=== PATIENT | female | born 1965 | race Caucasian/White ===

== ENCOUNTER 2016-10-31 17:13 | Inpatient (IN) | payer MEDICAID, MEDICARE ==
[~2016-10-31] VITALS: Ht 152.4 cm; Wt 61.7 kg
[~2016-10-31 17:13] MED LIST: ESOM20CA PO; FLUT1DIS27 IH; [UNRECOGNIZED DRUG - REMARK]
--- NOTE | 2016-10-31 17:30 | NUR ---
DR CRUZ AT THE BEDSIDE FOR EVAL AND EXAM.
[2016-10-31 18:01] LABS: BASOPHILS # (AUTO) 0.2 K/uL (0.0-8.0); EOSINOPHILS # (AUTO) 0.1 K/uL (0.0-0.7); EOSINOPHILS % (AUTO) 0.4 % (0.0-7.0); HEMATOCRIT 42.4 % (31.2-41.9); HEMOGLOBIN 14.5 g/dL (10.9-14.3); LYMPHOCYTES # (AUTO) 1.5 K/uL (20.0-40.0); LYMPHOCYTES % (AUTO) 6.4 % (20.5-51.5); MEAN CORPUSCULAR HEMOGLOBIN 29.6 uug (24.7-32.8); MEAN CORPUSCULAR HGB CONC 34 g/dL (32.3-35.6); MEAN CORPUSCULAR VOLUME 86.6 fL (75.5-95.3); MONOCYTES # (AUTO) 0.6 K/uL (2.0-10.0); MONOCYTES % (AUTO) 2.5 % (0.0-11.0); NEUTROPHILS # (AUTO) 21.8 K/uL (1.8-8.9); NEUTROPHILS % (AUTO) 89.7 % (38.5-71.5); PLATELET COUNT (AUTO) 441 K/uL (179-408); RED CELL DISTRIBUTION WIDTH 13.3 % (12.3-17.7); WHITE BLOOD COUNT (AUTO) 24.2 K/uL (3.8-11.8)
[2016-10-31 18:15] LABS: CALCIUM 9.2 mg/dL (8.5-10.1); CARBON DIOXIDE 24 mmol/L (21-32); CHLORIDE 103 mmol/L (98-107); GFR > 130 mL/min (>60); GLUCOSE 123 mg/dL (74-106); POTASSIUM 3.5 mmol/L (3.5-5.1); SODIUM SERUM 139 mmol/L (136-145); UREA NITROGEN, BLOOD 7 mg/dL (7-18)
[2016-10-31 18:17] LABS: CREATININE 0.3 mg/dL (0.6-1.3)
--- NOTE | 2016-10-31 18:20 | NUR ---
BELONGING LIST COMPLETED.
[2016-10-31 18:23] LABS: LACTIC ACID 0.9 mmol/L (0.4-2.0); TROPONIN I < 0.017 ng/mL (0.00-0.056)
[2016-10-31 18:26] LABS: LYMPHOCYTES % (MANUAL) 6 % (20-40); MONOCYTES % (MANUAL) 5 % (2-10); NEUTROPHILS % (MANUAL) 89 % (42-75)
[2016-10-31 18:27] LABS: PLATELET ESTIMATE ADEQUATE
[2016-10-31 18:28] LABS: ALANINE AMINOTRANSFERASE 43 U/L (14-59); ALBUMIN 3.1 g/dL (3.4-5.0); ALKALINE PHOSPHATASE 72 U/L (50-136); ASPARTATE AMINOTRANSFERASE 36 U/L (15-37); BILIRUBIN,DIRECT 0.1 mg/dL (0.0-0.2); BILIRUBIN,TOTAL 0.3 mg/dL (0.2-1.0); NT-PRO BNP 121 pg/mL (0-125); TOTAL PROTEIN, SERUM 8.5 g/dL (6.4-8.2)
[2016-10-31] MEDS ORDERED: CEFTRIAXONE 2 G in IV DEXTROSE 5% 100 ML IV ONE (18:30)
[2016-10-31] MEDS ORDERED: AZITHROMYCIN IV 500 MG in IV DEXTROSE 5% 250 ML IV ONE (18:30)
[2016-10-31] MEDS ORDERED: CEFTRIAXONE 1 G VIAL ONE (18:36)
[2016-10-31] MEDS ORDERED: AZITHROMYCIN 500 MG VIAL IV ONE (18:37)
--- NOTE | 2016-10-31 19:21 | NUR ---
Note adamaris in EDM - 10/31/16 at 1922 by JORGE Care endorsed by [facility] nurse, pt resting in wheelchair, pt is alert, oriented x 4, no resp distress noted or reported upon assessment...MD at bedside...
--- NOTE | 2016-10-31 19:22 | NUR ---
Care endorsed by dayshift nurse, pt resting in wheelchair, pt is alert, oriented x 4, no resp distress noted or reported upon assessment...
[2016-10-31] MEDS ORDERED: MAGNESIUM HYDROXIDE 30 ML LIQUID UDC PO PRN (20:15)
[2016-10-31] MEDS ORDERED: ALBUTEROL SULFATE 1.25 MG/3 ML NEBU NEB PRN (20:15)
[2016-10-31] MEDS ORDERED: LEVOFLOXACIN 500 MG/D5W 500 MG in PREMIXED 1 EACH IV SCH (20:15)
[2016-10-31] MEDS ORDERED: IPRATROPIUM BROMIDE 0.5 MG/2.5 ML NEBU NEB PRN (20:15)
[2016-10-31] MEDS ORDERED: TRAMADOL HCL 50 MG TABLET PO PRN (20:15)
[2016-10-31] MEDS ORDERED: ACETAMINOPHEN 325 MG TABLET PO PRN (20:15)
[2016-10-31] MEDS ORDERED: ONDANSETRON 4 MG/2 ML VIAL IV PRN (20:15)
--- NOTE | 2016-10-31 20:15 | NUR ---
nsg: pt received fr er, a/o x 4 with dx of pneumonia. denies sob or any discomfort. will have ct angiogram of chest. pt is wheelchair bound. at the bedside. cont to monitor.
[2016-10-31] MEDS ORDERED: FLUTICASONE/SALMETEROL 100/50 1 INH DISK.W.DEV IH SCH (21:00)
[2016-10-31] MEDS ORDERED: DOCUSATE SODIUM 250 MG CAPSULE PO SCH (21:00)
--- NOTE | 2016-10-31 21:25 | NUR ---
Pt. admitted to telemetry , under care of Dr. Zheng, Belongs List completed, pt alert, oriented x 4, pt resting in wheel chair, no resp distress noted or reported upon transfer assessment... pt transferred via personal wheel chair...
[2016-10-31] MEDS ORDERED: IV NORMAL SALINE 250 ML IV ONE (21:45)
[2016-10-31] MEDS ORDERED: NORMAL SALINE FLUSH 10 ML DISP.SYRIN ONE (21:45)
[2016-10-31] MEDS ORDERED: IOHEXOL 350 100 ML INFUS..BTL ONE (21:45)
[2016-10-31] MEDS ORDERED: LEVOFLOXACIN 500 MG/D5W 100 ML ONE (22:28)
[2016-10-31 22:33] VITALS: BP 158/88
[2016-10-31] MEDS ORDERED: FLUT1DIS28 INH (22:53)
[2016-10-31] MEDS ORDERED: AZITHROMYCIN IV 500 MG in IV DEXTROSE 5% 250 ML IV SCH (23:30)
[2016-10-31] MEDS ORDERED: CEFTRIAXONE 1 G in IV DEXTROSE 5% 50 ML IV SCH (23:30)
--- NOTE | 2016-10-31 23:30 | NUR ---
nsg: notified Dr. Petersen with cta result. per Md, called Dr. Menendez for consult.
[2016-11-01 00:41] VITALS: BP 150/94
--- NOTE | 2016-11-01 00:47 | NUR ---
NSG: ROCEPHIN AND ZITHROMAX WERE ADMINISTERED IN ER.
[2016-11-01 04:00] VITALS: BP 130/81
--- NOTE | 2016-11-01 05:00 | NUR ---
nsg: pt cough out thick greenish mucous, no trace of blood.
--- NOTE | 2016-11-01 05:40 | NUR ---
nsg: all needs attended. very helpful with adl's. pt denies discomfort. tele, SR. afebrile. cont to monitor.
[2016-11-01 07:00] LABS: BASOPHILS # (AUTO) 0.1 K/uL (0.0-8.0); BASOPHILS % (AUTO) 0.3 % (0.0-2.0); EOSINOPHILS # (AUTO) 0.2 K/uL (0.0-0.7); HEMATOCRIT 36.7 % (31.2-41.9); HEMOGLOBIN 12.9 g/dL (10.9-14.3); LYMPHOCYTES # (AUTO) 1.6 K/uL (20.0-40.0); LYMPHOCYTES % (AUTO) 9.4 % (20.5-51.5); MEAN CORPUSCULAR HEMOGLOBIN 30.4 uug (24.7-32.8); MEAN CORPUSCULAR HGB CONC 35 g/dL (32.3-35.6); MEAN CORPUSCULAR VOLUME 86.6 fL (75.5-95.3); MONOCYTES # (AUTO) 1.2 K/uL (2.0-10.0); NEUTROPHILS % (AUTO) 82.3 % (38.5-71.5); PLATELET COUNT (AUTO) 387 K/uL (179-408); RED BLOOD CELL COUNT(AUTO) 4.24 MIL/uL (3.63-4.92); RED CELL DISTRIBUTION WIDTH 13.1 % (12.3-17.7); WHITE BLOOD COUNT (AUTO) 17.1 K/uL (3.8-11.8)
[2016-11-01] MEDS ORDERED: PANTOPRAZOLE SODIUM 40 MG TABLET.DR PO SCH (07:00)
[2016-11-01 07:27] LABS: THYROID STIMULATING HORMONE 2.381 mIU/mL (0.358-3.740)
[2016-11-01 07:50] LABS: ALANINE AMINOTRANSFERASE 42 U/L (14-59); ALBUMIN 2.6 g/dL (3.4-5.0); ALKALINE PHOSPHATASE 66 U/L (50-136); ASPARTATE AMINOTRANSFERASE 33 U/L (15-37); BILIRUBIN,TOTAL 0.3 mg/dL (0.2-1.0); CALCIUM 8.9 mg/dL (8.5-10.1); CARBON DIOXIDE 25 mmol/L (21-32); CHLORIDE 107 mmol/L (98-107); CHOLESTEROL 109 mg/dL (<200); GFR > 130 mL/min (>60); GLUCOSE 113 mg/dL (74-106); HDL CHOLESTEROL 66 mg/dL (40-60); MAGNESIUM 2.2 mg/dL (1.8-2.4); PHOSPHOROUS 3.1 mg/dL (2.5-4.9); POTASSIUM 3.6 mmol/L (3.5-5.1); SODIUM SERUM 142 mmol/L (136-145); TOTAL PROTEIN, SERUM 7.5 g/dL (6.4-8.2); TRIGLYCERIDES 43 MG/DL (30-150); UREA NITROGEN, BLOOD 4 mg/dL (7-18)
[2016-11-01 07:54] LABS: CREATININE 0.2 mg/dL (0.6-1.3)
--- NOTE | 2016-11-01 08:00 | NUR ---
Pt is in no acute distress. Call light si wthin reach. Pt's takes care of pt. HHN tx given by rt.
[2016-11-01] MEDS: ENOXAPARIN SODIUM 40 MG/0.4 ML DISP.SYRIN SQ SCH ×2 (08:30→09:00)
[2016-11-01] MEDS ORDERED: FLUTICASONE/SALMETEROL 250/50 INHALER INH SCH (09:00)
[2016-11-01 12:23] VITALS: BP 131/85
[2016-11-01] MEDS ORDERED: LEVALBUTEROL HCL NEB 0.63 MG/3 ML NEBU NEB PRN (15:30)
[2016-11-01] MEDS ORDERED: IV D5W-0.45% NS + KCL 30 MEQ/1000 ML BAG IV SCH (15:30)
[2016-11-01] MEDS ORDERED: ACETYLCYSTEINE 10% 4ML VIAL NEB SCH (15:30)
--- NOTE | 2016-11-01 16:00 | NUR ---
Pt iv infiltrated. Notiified Dr velazco ordered midline. Placed call for midline people and ETA of 1900. Pt is in no acute distress.
[2016-11-01] MEDS: methylPREDNISolone SOD SUCC 125 MG/2 ML VIAL IV SCH ×2 (16:17→21:40)
[2016-11-01] MEDS: CEFTRIAXONE 1 G in IV DEXTROSE 5% 50 ML IV SCH (16:18)
[2016-11-01] MEDS: POTASSIUM CHLORIDE 30 MEQ in IV D5 1/2 NS 1000 ML 1,000 ML IV SCH (16:19)
[2016-11-01 16:44] VITALS: BP 138/86
--- NOTE | 2016-11-01 18:30 | NUR ---
midline on left arm intact and flushing well restarted IV abx . Will endorse to next shift to give next abx. Pt is in no acute distress. Call light is within reach.
[2016-11-01 19:00] VITALS: BP 129/80
[2016-11-01] MEDS: IPRATROPIUM BROMIDE 0.5 MG/2.5 ML NEBU NEB SCH (19:33)
[2016-11-01] MEDS: LEVALBUTEROL HCL NEB 0.63 MG/3 ML NEBU NEB SCH (19:33)
[2016-11-01] MEDS: BUDESONIDE 0.5 MG/2 ML NEBU NEB SCH (19:33)
[2016-11-01] MEDS: ACETYLCYSTEINE 10% 4ML VIAL NEB SCH (19:34)
[2016-11-01] MEDS ORDERED: IPRATROPIUM BROMIDE 0.5 MG/2.5 ML NEBU NEB PRN (20:15)
[2016-11-01] MEDS: AZITHROMYCIN IV 500 MG in IV DEXTROSE 5% 250 ML IV SCH (20:48)
[2016-11-01] MEDS: DOCUSATE SODIUM 100 MG CAPSULE PO SCH (20:49)
[2016-11-01] MEDS: LACTOBACILLUS RHAMNOSUS GG 1 EACH CAPSULE PO SCH (20:49)
[2016-11-02] MEDS: ACETYLCYSTEINE 10% 4ML VIAL NEB SCH ×5 (01:00→22:25)
[2016-11-02] MEDS: IPRATROPIUM BROMIDE 0.5 MG/2.5 ML NEBU NEB SCH ×5 (01:00→22:24)
[2016-11-02] MEDS: LEVALBUTEROL HCL NEB 0.63 MG/3 ML NEBU NEB SCH ×5 (01:01→22:25)
[2016-11-02 04:00] VITALS: BP 118/76
[2016-11-02] MEDS: POTASSIUM CHLORIDE 30 MEQ in IV D5 1/2 NS 1000 ML 1,000 ML IV SCH ×2 (05:13→17:31)
[2016-11-02] MEDS: methylPREDNISolone SOD SUCC 125 MG/2 ML VIAL IV SCH (05:13)
--- NOTE | 2016-11-02 05:40 | NUR ---
PATIENT SLEPT INTERMITTENTLY, NO ACUTE DISTRESS. ZITHROMAX IV GIVEN ORDERED, NO S/S OF ADVERSE REACTION NOTED. IVF INFUSING, NO S/S OF INFILTRATION. REPOSITIONED FOR COMFORT. SPOUSE AT BEDSIDE. SAFETY MEASURES IN PLACE, CALL LIGHT WITHIN REACH, BED ALARM ON. WILL CONTINUE TO MONITOR
[2016-11-02 07:09] LABS: CALCIUM 8.8 mg/dL (8.5-10.1); CARBON DIOXIDE 23 mmol/L (21-32); CHLORIDE 103 mmol/L (98-107); GFR > 130 mL/min (>60); POTASSIUM 4.3 mmol/L (3.5-5.1); SODIUM SERUM 136 mmol/L (136-145); UREA NITROGEN, BLOOD 4 mg/dL (7-18)
[2016-11-02 07:10] LABS: CREATININE 0.4 mg/dL (0.6-1.3)
[2016-11-02 07:13] LABS: GLUCOSE 325 mg/dL (74-106)
--- NOTE | 2016-11-02 07:15 | NUR ---
BREE FROM LAB CALLED REGARDING PATIENT'S BLOOD GLUCOSE LEVEL FOR THIS MORNING AT 325. ENDORSED TO THE AM SHIFT RN TO CALL
[2016-11-02 07:36] LABS: BASOPHILS % (AUTO) 0.1 % (0.0-2.0); EOSINOPHILS % (AUTO) 0.3 % (0.0-7.0); HEMATOCRIT 36.2 % (31.2-41.9); HEMOGLOBIN 12.4 g/dL (10.9-14.3); LYMPHOCYTES # (AUTO) 0.6 K/uL (20.0-40.0); LYMPHOCYTES % (AUTO) 8.4 % (20.5-51.5); MEAN CORPUSCULAR HEMOGLOBIN 29.8 uug (24.7-32.8); MEAN CORPUSCULAR HGB CONC 34 g/dL (32.3-35.6); MEAN CORPUSCULAR VOLUME 86.8 fL (75.5-95.3); MONOCYTES # (AUTO) 0.1 K/uL (2.0-10.0); MONOCYTES % (AUTO) 1.8 % (0.0-11.0); NEUTROPHILS # (AUTO) 6.1 K/uL (1.8-8.9); NEUTROPHILS % (AUTO) 89.4 % (38.5-71.5); PLATELET COUNT (AUTO) 413 K/uL (179-408); RED BLOOD CELL COUNT(AUTO) 4.17 MIL/uL (3.63-4.92); RED CELL DISTRIBUTION WIDTH 13.3 % (12.3-17.7)
[2016-11-02 07:38] LABS: WHITE BLOOD COUNT (AUTO) 6.8 K/uL (3.8-11.8)
[2016-11-02] MEDS: BUDESONIDE 0.5 MG/2 ML NEBU NEB SCH ×3 (07:46→22:26)
--- NOTE | 2016-11-02 08:20 | NUR ---
CPT PERFORMED TO LEFT SIDE PER MD ORDER. CPT DONE X 15MINS.
[2016-11-02] MEDS: ENOXAPARIN SODIUM 40 MG/0.4 ML DISP.SYRIN SQ SCH (08:48)
[2016-11-02] MEDS ORDERED: PATIENT MAY USE OWN MED- MD OK PO SCH ×2 (09:36→10:07)
--- NOTE | 2016-11-02 10:05 | NUR ---
PT REQUESTING TO TAKE MICROGESTIN IN THE EVENING, WILL CALL PHARMACY TO ADJUST
[2016-11-02] MEDS: LACTOBACILLUS RHAMNOSUS GG 1 EACH CAPSULE PO SCH ×2 (10:20→21:06)
[2016-11-02 10:49] LABS: ABG BASE EXCESS -5.2 mmol/L; ABG HCO3 17.5 mmol/L; ABG PCO2 26.8 mmHg (35.0-45.0); ABG PH 7.433 (7.350-7.450); ABG PO2 84.2 mmHg (75.0-100.0); ABG SITE RIGHT RADIAL; ABG TOTAL HEMOGLOBIN 13.5 G/dL (12.0-16.0); COHb 0.8 % (0.5-1.5); MetHb 0.5 % (0.0-1.5); O2Hb 95.7 % (94.0-97.0); VENT MODE Room Air
--- NOTE | 2016-11-02 11:50 | NUR ---
CPT DONE X 15MINS. FOCUS TO LEFT SIDE PER MD ORDER. PT SITTING IN WC DURING TX.
[2016-11-02 11:51] VITALS: BP 149/93
[2016-11-02 16:20] VITALS: BP 140/96
--- NOTE | 2016-11-02 16:20 | NUR ---
CPT DONE X 15MINS. FOCUS TO LEFT SIDE PER MD ORDER. PT SITTING IN WC DURING TX.
[2016-11-02] MEDS ORDERED: ACETAMINOPHEN 650 MG/20.3 ML LIQUID UDC PO PRN (16:30)
[2016-11-02] MEDS: CEFTRIAXONE 1 G in IV DEXTROSE 5% 50 ML IV SCH (16:48)
[2016-11-02] MEDS ORDERED: methylPREDNISolone SOD SUCC 125 MG/2 ML VIAL IV SCH (17:00)
[2016-11-02] MEDS: AZITHROMYCIN IV 500 MG in IV DEXTROSE 5% 250 ML IV SCH (18:59)
--- NOTE | 2016-11-02 20:19 | NUR ---
Pt awake, alert. No respiratory distress noted. Pt asked RT to come back in 1 hour due to nausea. RN Ada notified.
[2016-11-02 20:24] VITALS: BP 145/92
[2016-11-02] MEDS ORDERED: NEXIUM 40MG CAPSULE PO SCH (21:00)
[2016-11-02] MEDS: DOCUSATE SODIUM 100 MG CAPSULE PO SCH (21:00)
[2016-11-02] MEDS: methylPREDNISolone SOD SUCC 40 MG/ML VIAL IV SCH (21:05)
--- NOTE | 2016-11-02 22:30 | NUR ---
CPT done on left side per MD order. Pt tolerated well.
--- NOTE | 2016-11-02 23:45 | NUR ---
Patient refused IVF D5 1/2NS + KCL 30 mEq at 80ml/hr due to alarm sensitivity when patient moves, coughs or during repositioning. Patient stated "I want to be able to get some sleep". butt presser notified regarding situation. Patient's current Potassium level is 4.3. Will continue to monitor.
[2016-11-03] VITALS: BP 133/80
[2016-11-03] MEDS: ACETYLCYSTEINE 10% 4ML VIAL NEB SCH ×3 (01:30→07:18)
[2016-11-03] MEDS: LEVALBUTEROL HCL NEB 0.63 MG/3 ML NEBU NEB SCH ×2 (01:30→07:17)
[2016-11-03] MEDS: IPRATROPIUM BROMIDE 0.5 MG/2.5 ML NEBU NEB SCH ×2 (01:30→07:17)
--- NOTE | 2016-11-03 02:03 | NUR ---
HHN tx's not given. Previous tx's pt got late. Next tx's she wants after 3AM. RN Ada notified.
[2016-11-03 05:19] VITALS: BP 130/76
--- NOTE | 2016-11-03 05:37 | NUR ---
Patient slept intermittently, in no acute distress, anxious about possible bronchoscopy procedure per MD's plan. Patient continues to refuse IVF. Will endorse to AM shift RN. Spouse at bedside. Will continue to monitor.
--- NOTE | 2016-11-03 06:08 | NUR ---
Patient complained of throat discomfort, noted to have white patches on the roof of the mouth and tongue. Will endorse to day shift RN to notify MD during AM rounds. Addendum: 11/03/16 at 0613 by CELI JOHNSON RN Additional note: Notified inserter operator regarding patient's status.
[2016-11-03 06:56] LABS: BASOPHILS % (AUTO) 0.2 % (0.0-2.0); EOSINOPHILS # (AUTO) 0.1 K/uL (0.0-0.7); EOSINOPHILS % (AUTO) 0.8 % (0.0-7.0); HEMOGLOBIN 12.3 g/dL (10.9-14.3); LYMPHOCYTES # (AUTO) 0.5 K/uL (20.0-40.0); LYMPHOCYTES % (AUTO) 3.7 % (20.5-51.5); MEAN CORPUSCULAR HEMOGLOBIN 29.2 uug (24.7-32.8); MEAN CORPUSCULAR HGB CONC 33 g/dL (32.3-35.6); MEAN CORPUSCULAR VOLUME 87.6 fL (75.5-95.3); MONOCYTES # (AUTO) 0.4 K/uL (2.0-10.0); MONOCYTES % (AUTO) 3.2 % (0.0-11.0); NEUTROPHILS # (AUTO) 12.8 K/uL (1.8-8.9); NEUTROPHILS % (AUTO) 92.1 % (38.5-71.5); PLATELET COUNT (AUTO) 434 K/uL (179-408); RED BLOOD CELL COUNT(AUTO) 4.22 MIL/uL (3.63-4.92); RED CELL DISTRIBUTION WIDTH 13.4 % (12.3-17.7); WHITE BLOOD COUNT (AUTO) 13.8 K/uL (3.8-11.8)
[2016-11-03 07:12] LABS: CALCIUM 8.9 mg/dL (8.5-10.1); CARBON DIOXIDE 23 mmol/L (21-32); CHLORIDE 107 mmol/L (98-107); GFR > 130 mL/min (>60); GLUCOSE 207 mg/dL (74-106); POTASSIUM 3.7 mmol/L (3.5-5.1); SODIUM SERUM 140 mmol/L (136-145); UREA NITROGEN, BLOOD 6 mg/dL (7-18)
[2016-11-03 07:14] LABS: CREATININE 0.3 mg/dL (0.6-1.3)
[2016-11-03] MEDS: BUDESONIDE 0.5 MG/2 ML NEBU NEB SCH (07:17)
--- NOTE | 2016-11-03 08:00 | NUR ---
Awake, alert, oriented x 4, at bedside. CPT with RT. CXR done
[2016-11-03] MEDS: methylPREDNISolone SOD SUCC 40 MG/ML VIAL IV SCH (09:00)
[2016-11-03] MEDS: LACTOBACILLUS RHAMNOSUS GG 1 EACH CAPSULE PO SCH (09:00)
[2016-11-03 11:08] VITALS: BP 160/95
--- NOTE | 2016-11-03 12:12 | NUR ---
With discharge order to home. Midline removed. Prescription and DC instruction given to patient and spouse, verbalized understanding.
--- NOTE | 2016-11-03 12:29 | NUR ---
Went home per wheelchair in fair condition, not in distress, afebrile with spouse.
== END 2016-11-03 12:30 | disposition home or self-care (01) | DRG 871 ==
LOC: ER 17:20 → TELE 19:44 → MED 11-01 11:35
PROVIDERS: ADMIT Internal Medicine; ATTEND Internal Medicine
PROC: 05H633Z Insertion of Infusion Device into Left Subclavian Vein, Percutaneous Approach (ICD-10-PCS; principal; 2016-11-01)
DX: A41.9 Sepsis, unspecified organism (principal); J15.9 Unspecified bacterial pneumonia; T17.890A Other foreign object in other parts of respiratory tract causing asphyxiation, initial encounter; G71.0 Muscular dystrophy; D68.59 Other primary thrombophilia; J45.901 Unspecified asthma with (acute) exacerbation; J98.11 Atelectasis; K44.9 Diaphragmatic hernia without obstruction or gangrene; K21.9 Gastro-esophageal reflux disease without esophagitis; M41.9 Scoliosis, unspecified; K80.20 Calculus of gallbladder without cholecystitis without obstruction; E86.0 Dehydration; X58.XXXA Exposure to other specified factors, initial encounter; Y92.009 Unspecified place in unspecified non-institutional (private) residence as the place of occurrence of the external cause; T38.0X5A Adverse effect of glucocorticoids and synthetic analogues, initial encounter; Y93.9 Activity, unspecified; Y99.9 Unspecified external cause status; R73.9 Hyperglycemia, unspecified; K76.0 Fatty (change of) liver, not elsewhere classified; R59.0 Localized enlarged lymph nodes
CPT/HCPCS: 36415; 36569; 36600; 70030-TC; 71010; 71275; 82785; 83605; 83735; 84100; 84443; 85025; 87040; 87070; 94640; 94664; A4663; J0456; J0696; J1650; J1956; J2920; J2930; J3480; J3490; J3590; J7050; J7060; J7614; Q9967

== ENCOUNTER 2016-11-07 19:15 | Emergency (ER) | payer MEDICARE ==
[~2016-11-07] VITALS: Ht 152.4 cm; Wt 59.0 kg
[~2016-11-07 19:15] MED LIST changes: -FLUT1DIS27 IH; +FLUT1DIS28 INH
--- NOTE | 2016-11-07 19:30 | NUR ---
pt ambulates in automated wheelchair with at side, c/o unable to sleep/afraid that infection is coming back, pt is alert, oriented x 4, no resp distress noted or reported upon assessment... md at bedside...
[2016-11-07 20:14] LABS: BASOPHILS # (AUTO) 0.3 K/uL (0.0-8.0); EOSINOPHILS # (AUTO) 0.2 K/uL (0.0-0.7); HEMATOCRIT 46.7 % (31.2-41.9); HEMOGLOBIN 15.9 g/dL (10.9-14.3); LYMPHOCYTES # (AUTO) 2.9 K/uL (20.0-40.0); LYMPHOCYTES % (AUTO) 18.8 % (20.5-51.5); MEAN CORPUSCULAR HEMOGLOBIN 29.7 uug (24.7-32.8); MEAN CORPUSCULAR HGB CONC 34 g/dL (32.3-35.6); MEAN CORPUSCULAR VOLUME 87.6 fL (75.5-95.3); MONOCYTES # (AUTO) 0.9 K/uL (2.0-10.0); MONOCYTES % (AUTO) 5.8 % (0.0-11.0); NEUTROPHILS # (AUTO) 11.1 K/uL (1.8-8.9); NEUTROPHILS % (AUTO) 72.4 % (38.5-71.5); PLATELET COUNT (AUTO) 555 K/uL (179-408); RED BLOOD CELL COUNT(AUTO) 5.34 MIL/uL (3.63-4.92); RED CELL DISTRIBUTION WIDTH 13.7 % (12.3-17.7); WHITE BLOOD COUNT (AUTO) 15.4 K/uL (3.8-11.8)
[2016-11-07 20:28] LABS: CALCIUM 9.4 mg/dL (8.5-10.1); CARBON DIOXIDE 26 mmol/L (21-32); GFR > 130 mL/min (>60); GLUCOSE 157 mg/dL (74-106); UREA NITROGEN, BLOOD 14 mg/dL (7-18)
--- NOTE | 2016-11-07 20:30 | NUR ---
pt iv placed, hooked up to fluids per ermd orders....
[2016-11-07 20:31] LABS: CHLORIDE 103 mmol/L (98-107); POTASSIUM 3.3 mmol/L (3.5-5.1); SODIUM SERUM 141 mmol/L (136-145)
[2016-11-07 20:32] LABS: CREATININE 0.5 mg/dL (0.6-1.3)
[2016-11-07] MEDS ORDERED: IV NORMAL SALINE 1000 ML BAG IV ONE ×2 (21:15→23:15)
--- NOTE | 2016-11-07 21:45 | NUR ---
pt continues resting in wheelchair, will continue to monitor pt for safety, comfort, and pain... at side...
--- NOTE | 2016-11-08 01:08 | NUR ---
Patient discharged to home in stable conditon. Written and verbal after care instructions given. Patient verbalizes understanding of instructions. pt exited ER unassisted with belongings and at side...
[2016-11-08 01:12] VITALS: BP 142/97
== END 2016-11-08 01:12 | disposition home or self-care (01) ==
LOC: ER 19:19
DX: E86.0 Dehydration (principal); J98.01 Acute bronchospasm; F41.9 Anxiety disorder, unspecified; K21.9 Gastro-esophageal reflux disease without esophagitis
CPT/HCPCS: 36415; 71010 ×2; 80048; 83735; 85025; 94640 ×2; 96360; 96361; 99285; A4663; J7030 ×2

== ENCOUNTER 2017-03-22 12:11 | Inpatient (IN) | payer MEDICARE ==
[~2017-03-22] VITALS: Ht 152.4 cm; Wt 59.0 kg
--- NOTE | 2017-03-22 12:27 | NUR ---
patient in room 2A at bedside patient awaiting to see in her own motorized chair.
[2017-03-22 13:46] LABS: BASOPHILS # (AUTO) 0.8 K/uL (0.0-8.0); BASOPHILS % (AUTO) 3.7 % (0.0-2.0); EOSINOPHILS % (AUTO) 0.1 % (0.0-7.0); HEMATOCRIT 43.2 % (37-47); LYMPHOCYTES # (AUTO) 0.6 K/UL (0.8-4.8); MEAN CORPUSCULAR HEMOGLOBIN 28.3 UUG (27.0-31.0); MEAN CORPUSCULAR HGB CONC 32 g/dL (32.0-37.0); MEAN CORPUSCULAR VOLUME 87.4 FL (81.0-99.0); MONOCYTES # (AUTO) 0.7 K/UL (0.1-1.30); MONOCYTES % (AUTO) 3.5 % (0.0-11.0); NEUTROPHILS # (AUTO) 18.6 K/UL (1.8-8.9); NEUTROPHILS % (AUTO) 89.7 % (38.5-71.5); PLATELET COUNT (AUTO) 384 K/UL (150-450); RED BLOOD CELL COUNT(AUTO) 4.95 MIL/UL (4.2-5.4); WHITE BLOOD COUNT (AUTO) 20.7 K/UL (4.0-11.2)
[2017-03-22 13:49] LABS: CARBON DIOXIDE 24 mmol/L (21-32); CHLORIDE 103 mmol/L (98-107); CREATININE 0.4 mg/dL (0.6-1.3); GLUCOSE 216 mg/dL (74-106); POTASSIUM 3.2 mmol/L (3.5-5.1); UREA NITROGEN, BLOOD 7 mg/dL (7-18)
[2017-03-22 14:02] LABS: ALANINE AMINOTRANSFERASE 22 U/L (14-59); ALKALINE PHOSPHATASE 77 U/L (50-136); ASPARTATE AMINOTRANSFERASE 18 U/L (15-37); BILIRUBIN,DIRECT 0.1 mg/dL (0.0-0.2); BILIRUBIN,TOTAL 0.4 mg/dL (0.2-1.0); TOTAL PROTEIN, SERUM 7.7 g/dL (6.4-8.2)
--- NOTE | 2017-03-22 14:03 | NUR ---
DR CRUZ NOTIFIED OF ELEVATED LACTIC ACID
[2017-03-22 14:17] LABS: BAND % (MANUAL) 12 % (0-10); LYMPHOCYTES % (MANUAL) 2 % (20-40); MONOCYTES % (MANUAL) 6 % (2-10); NEUTROPHILS % (MANUAL) 80 % (42-75)
--- NOTE | 2017-03-22 15:20 | NUR ---
ASSITED PATIENT WITH VOIDING URINE IN A FONSECA. PT IS AWAKE AND ALERT WITH NO NEW COMPLAINTS. SPUTUM SPECIMEN SENT TO LAB
--- NOTE | 2017-03-22 16:00 | NUR ---
REPORT GIVEN TO ABILIO RN. PT AND AWARE OF PENDING ADMISSION.
[2017-03-22 16:59] VITALS: BP 152/83
--- NOTE | 2017-03-22 20:00 | NUR ---
Received pt from am shift,pt's A/A/O x4;generalized weakness,cough sometimes with moderate amount of white sputum.called Rx in order to follow up with KCL due to pt's unable to take tablet;will arrange it pascual(see record in SEP noted).pt's on IVF as order;educated to pt and her who's stayed at the bedside;they verbalized understanding and cooperative noted.all needs were met.Called MD in order to get orders as pt requested(see record); called back and gave order for HHN RX,medication(as record);educated to pt and ;they verbalized understanding noted.
[2017-03-22 20:37] VITALS: BP 134/80
--- NOTE | 2017-03-22 21:25 | NUR ---
Educated to pt about Lovenox for DVT prophylaxis:Pt refused to get Lovenox and stated that"I know what I need.I don't need any kind of blood thinner,everyone told me about it but I don't need it";pt's who stayed at the bedside agreed with pt about it and stated that"Believe me,my knows what she need".Kept comfort.call-light within reach.
--- NOTE | 2017-03-22 23:00 | NUR ---
Called RT in order to give HHN Rx(Xopenex) to pt as request;pt tolerated well.cough's getting better/no SOB noted.maintained IVF as order.kept comfort.call-light within reach.PM care to pt at this time.
--- NOTE | 2017-03-22 23:50 | NUR ---
PER PT AND HER STATED THAT THEY WANTED PT TO SLEEP DURING OF THE NIGHT,TRIED NOT TO WAKE HER UP VIRGILIO.MAINTAINED IVF ORDER.KEPT COMFORT.SAFETY RENDER.CALL-LIGHT WITHIN REACH.
[2017-03-23 05:00] VITALS: BP 102/54
--- NOTE | 2017-03-23 06:00 | NUR ---
PT STATED THAT SHE'S ABLE TO SLEEP OK.FOUND STILL PENDING LAB TEST FOR INFLUENZA A&B;EDUCATED TO PT AND ABOUT THIS TEST;THEY VERBALIZED UNDERSTANDING AND STATED THAT IF THIS TEST'S NOT FROM 'S ORDER;SHE WANTED TO WAIT AND DISCUSSED WITH PRIOR THE TEST;LUCAS/RUBBER MOLD MAKER'S NOTIFIED AND AWARE.MAINTAINED IVF ORDER;NO INFILTRATION AT THE IV SITE NOTED.ALL NEEDS WERE MET.NO SOB WAS SEEN UPON THIS TIME.PT STATED THAT "I'M NOT TAKING PROTONIX THIS MORNING,I USUALLY TAKE NEXIUM AT HOME".KEPT CALL-LIGHT WITHIN REACH.
[2017-03-23 06:58] LABS: BASOPHILS % (AUTO) 0.1 % (0.0-2.0); EOSINOPHILS % (AUTO) 0.3 % (0.0-7.0); HEMATOCRIT 35.8 % (37-47); LYMPHOCYTES # (AUTO) 0.4 K/UL (0.8-4.8); LYMPHOCYTES % (AUTO) 3.3 % (20.5-51.5); MEAN CORPUSCULAR HEMOGLOBIN 29.6 UUG (27.0-31.0); MEAN CORPUSCULAR HGB CONC 34 g/dL (32.0-37.0); MEAN CORPUSCULAR VOLUME 88.4 FL (81.0-99.0); MONOCYTES # (AUTO) 0.1 K/UL (0.1-1.30); MONOCYTES % (AUTO) 0.8 % (0.0-11.0); NEUTROPHILS # (AUTO) 12.8 K/UL (1.8-8.9); NEUTROPHILS % (AUTO) 95.5 % (38.5-71.5); PLATELET COUNT (AUTO) 319 K/UL (150-450); RED BLOOD CELL COUNT(AUTO) 4.04 MIL/UL (4.2-5.4); WHITE BLOOD COUNT (AUTO) 13.3 K/UL (4.0-11.2)
[2017-03-23 07:13] LABS: ALANINE AMINOTRANSFERASE 20 U/L (14-59); ALKALINE PHOSPHATASE 66 U/L (50-136); ASPARTATE AMINOTRANSFERASE 17 U/L (15-37); BILIRUBIN,TOTAL 0.2 mg/dL (0.2-1.0); CARBON DIOXIDE 21 mmol/L (21-32); CHLORIDE 112 mmol/L (98-107); CHOLESTEROL 100 mg/dL (<200); CREATININE 0.2 mg/dL (0.6-1.3); GLUCOSE 170 mg/dL (74-106); HDL CHOLESTEROL 64 mg/dL (40-60); MAGNESIUM 1.9 mg/dL (1.8-2.4); PHOSPHOROUS 1.8 mg/dL (2.5-4.9); POTASSIUM 4.4 mmol/L (3.5-5.1); TOTAL PROTEIN, SERUM 6.4 g/dL (6.4-8.2); TRIGLYCERIDES 26 MG/DL (30-150); UREA NITROGEN, BLOOD 3 mg/dL (7-18)
[2017-03-23 07:16] LABS: THYROID STIMULATING HORMONE 0.434 mIU/mL (0.358-3.740)
--- NOTE | 2017-03-23 08:00 | NUR ---
Awake, alert, oriented x 4, with at bedside. IVF infusing. Not in distress.
--- NOTE | 2017-03-23 09:15 | NUR ---
Patient care done by then transferred to own wheelchair. Breakfast served after per request
[2017-03-23 10:20] LABS: *BILIRUBIN,URIN NEGATIVE (NEGATIVE); *BLOOD, URINE Trace-intact (NEGATIVE); *CLARITY,URINE CLOUDY (CLEAR); *COLOR,URINE YELLOW (YELLOW); *KETONES,URINE 2+ (NEGATIVE); *PROTEIN,URINE TRACE (NEGATIVE); *UROBILINOGEN,URINE 0.2 E.U./dl (NORMAL); LEUKOCYTE ESTERASE ,URINE TRACE (NEGATIVE); NITRITE, URINE NEGATIVE (NEGATIVE); PH,URINE 6.5 (5.0-8.0); UGLUCOSE NEGATIVE (NEGATIVE)
[2017-03-23 10:32] LABS: BACTERIA,URINE FEW /HPF (NONE SEEN); SQUAMOUS EPITHELIAL CELL,UR MODERATE /HPF (NONE SEEN)
[2017-03-23] MEDS ORDERED: NORE-83 PO (10:56)
[2017-03-23 11:11] VITALS: BP 105/62
--- NOTE | 2017-03-23 12:00 | NUR ---
Complained of headache, Tylenol po given.
--- NOTE | 2017-03-23 16:00 | NUR ---
Comfortable sitting on the wheelchair.
--- NOTE | 2017-03-23 18:39 | NUR ---
Assisted back to bed by . Repositioned comfortably.
--- NOTE | 2017-03-23 19:00 | NUR ---
PT C/O NAUSEA. WILL ADMIN ZOFRAN ORDERED.
--- NOTE | 2017-03-23 19:40 | NUR ---
PT RECEIVED IN BED, AWAKE. VERNA AT BEDSIDE. A/OX4. ABLE TO MAKE NEEDS KNOWN. V/S STABLE. IN NO ACUTE DISTRESS. NO C/O PAIN AT THIS TIME. IVF AND ABX INFUSING. SAFETY MEASURES IMPLEMENTED. CALL LIGHT WITHIN REACH.
[2017-03-23 20:00] VITALS: BP 148/85
--- NOTE | 2017-03-23 20:15 | NUR ---
PT VERBALIZE RELIEF OF NAUSEA. WILL CONT TO MONITOR.
[2017-03-23 21:58] VITALS: BP 116/57
[2017-03-24 04:00] VITALS: BP 130/76
--- NOTE | 2017-03-24 06:02 | NUR ---
END OF SHIFT NOTES. PT SLEPT WELL THROUGHOUT SHIFT. AT BEDSIDE. PT IN STABLE CONDITION. NO C/O PAIN. IVF INFUSING. ALL NEEDS ATTENDED. SAFETY MEASURES IMPLEMENTED. CALL LIGHT WITHIN REACH.
[2017-03-24 07:41] LABS: BASOPHILS % (AUTO) 0.2 % (0.0-2.0); EOSINOPHILS # (AUTO) 0.1 K/uL (0.0-0.7); EOSINOPHILS % (AUTO) 0.8 % (0.0-7.0); HEMATOCRIT 34.8 % (37-47); HEMOGLOBIN 11.4 G/DL (12.0-16.0); LYMPHOCYTES # (AUTO) 0.7 K/UL (0.8-4.8); LYMPHOCYTES % (AUTO) 7.6 % (20.5-51.5); MEAN CORPUSCULAR HEMOGLOBIN 29.1 UUG (27.0-31.0); MEAN CORPUSCULAR HGB CONC 33 g/dL (32.0-37.0); MEAN CORPUSCULAR VOLUME 88.9 FL (81.0-99.0); MONOCYTES # (AUTO) 0.5 K/UL (0.1-1.30); MONOCYTES % (AUTO) 4.9 % (0.0-11.0); NEUTROPHILS # (AUTO) 8.5 K/UL (1.8-8.9); NEUTROPHILS % (AUTO) 86.5 % (38.5-71.5); PLATELET COUNT (AUTO) 335 K/UL (150-450); RED BLOOD CELL COUNT(AUTO) 3.92 MIL/UL (4.2-5.4); WHITE BLOOD COUNT (AUTO) 9.8 K/UL (4.0-11.2)
[2017-03-24 07:48] LABS: ALANINE AMINOTRANSFERASE 22 U/L (14-59); ALKALINE PHOSPHATASE 55 U/L (50-136); ASPARTATE AMINOTRANSFERASE 16 U/L (15-37); BILIRUBIN,TOTAL 0.1 mg/dL (0.2-1.0); CARBON DIOXIDE 24 mmol/L (21-32); CHLORIDE 112 mmol/L (98-107); CREATININE 0.2 mg/dL (0.6-1.3); GLUCOSE 154 mg/dL (74-106); MAGNESIUM 1.9 mg/dL (1.8-2.4); PHOSPHOROUS 1.8 mg/dL (2.5-4.9); POTASSIUM 3.8 mmol/L (3.5-5.1); TOTAL PROTEIN, SERUM 6.4 g/dL (6.4-8.2); UREA NITROGEN, BLOOD 4 mg/dL (7-18)
[2017-03-24 10:42] LABS: LYMPHOCYTES % (MANUAL) 9 % (20-40); MONOCYTES % (MANUAL) 7 % (2-10); NEUTROPHILS % (MANUAL) 84 % (42-75)
[2017-03-24 11:28] LABS: IRON, SERUM 27 ug/dL (50-175)
--- NOTE | 2017-03-24 12:11 | NUR ---
CLEANING PATIENT, ADVISED TO CALL WHEN FINISHED TO ADMINISTER MEDICATIONS, PT AGREED
[2017-03-24] MEDS ORDERED: PRED10TA PO (14:14)
[2017-03-24] MEDS ORDERED: LEVA0.6320 NEB (14:14)
[2017-03-24] MEDS ORDERED: PRED-170 PO (14:14)
[2017-03-24] MEDS ORDERED: PRED20TA PO (14:14)
[2017-03-24] MEDS ORDERED: FERR325T28 PO (14:14)
[2017-03-24] MEDS ORDERED: ACET325T53 PO (14:14)
[2017-03-24] MEDS ORDERED: NYST5ORA PO (14:14)
[2017-03-24] MEDS ORDERED: IPRA0.2S6 NEB (14:14)
[2017-03-24] MEDS ORDERED: FLUC100T PO (14:14)
[2017-03-24] MEDS ORDERED: LACT1CAP57 PO (14:14)
[2017-03-24] MEDS ORDERED: CEPH500C2 PO (14:15)
[2017-03-24 15:52] VITALS: BP 165/79
--- NOTE | 2017-03-24 18:00 | NUR ---
discharge protocol followed, all belongings accounted for and sent home with patient. all discharge paperwork signed, pt and verbalized understanding. iv removed with no redness or irritation noted. pt left with and friend.
== END 2017-03-24 17:45 | disposition home or self-care (01) | DRG 871 ==
LOC: ER 12:55 → MED 16:21
PROVIDERS: ADMIT Internal Medicine; ATTEND Internal Medicine
DX: A41.9 Sepsis, unspecified organism (principal); J18.9 Pneumonia, unspecified organism; G71.0 Muscular dystrophy; E87.2 Acidosis; D68.59 Other primary thrombophilia; E44.0 Moderate protein-calorie malnutrition; B37.0 Candidal stomatitis; J45.901 Unspecified asthma with (acute) exacerbation; J98.11 Atelectasis; B37.49 Other urogenital candidiasis; E83.39 Other disorders of phosphorus metabolism; K21.9 Gastro-esophageal reflux disease without esophagitis; Z99.3 Dependence on wheelchair; K44.9 Diaphragmatic hernia without obstruction or gangrene; Z83.3 Family history of diabetes mellitus; Z82.5 Family history of asthma and other chronic lower respiratory diseases; Z82.49 Family history of ischemic heart disease and other diseases of the circulatory system; Z87.01 Personal history of pneumonia (recurrent); Z77.22 Contact with and (suspected) exposure to environmental tobacco smoke (acute) (chronic); Z68.25 Body mass index [BMI] 25.0-25.9, adult; E87.6 Hypokalemia; M41.9 Scoliosis, unspecified; Z98.890 Other specified postprocedural states; D50.9 Iron deficiency anemia, unspecified; I10 Essential (primary) hypertension; Z79.51 Long term (current) use of inhaled steroids
CPT/HCPCS: 36415; 70030-TC; 71010; 83550; 83605; 83735; 84100; 84443; 85025; 85730; 87040; 87070; 87077; 87086; 87400; 93005; 94640; 94664; J0456; J0696; J0713; J1650; J2405; J2920; J2930; J3490; J3590; J7030; J7060; J7614; Q0144

== ENCOUNTER 2017-04-04 22:01 | Emergency (ER) | payer MEDICARE ==
[~2017-04-04] VITALS: Ht 162.6 cm; Wt 54.4 kg
[~2017-04-04 22:01] MED LIST changes: +ACET325T53 PO; +CEPH500C2 PO; +FERR325T28 PO; +FLUC100T PO; +IPRA0.2S6 NEB; +LACT1CAP57 PO; +LEVA0.6320 NEB; +NORE-83 PO; +NYST5ORA PO; +PRED-170 PO; +PRED10TA PO; +PRED20TA PO; -[UNRECOGNIZED DRUG - REMARK]
[2017-04-04 22:44] LABS: BASOPHILS # (AUTO) 0.5 K/uL (0.0-8.0); BASOPHILS % (AUTO) 3.2 % (0.0-2.0); EOSINOPHILS # (AUTO) 0.4 K/uL (0.0-0.7); EOSINOPHILS % (AUTO) 2.6 % (0.0-7.0); HEMATOCRIT 41.1 % (37-47); HEMOGLOBIN 13.4 G/DL (12.0-16.0); LYMPHOCYTES # (AUTO) 2.6 K/UL (0.8-4.8); LYMPHOCYTES % (AUTO) 18.5 % (20.5-51.5); MEAN CORPUSCULAR HEMOGLOBIN 28.4 UUG (27.0-31.0); MEAN CORPUSCULAR HGB CONC 33 g/dL (32.0-37.0); MEAN CORPUSCULAR VOLUME 87.1 FL (81.0-99.0); MONOCYTES # (AUTO) 1.2 K/UL (0.1-1.30); MONOCYTES % (AUTO) 8.6 % (0.0-11.0); NEUTROPHILS # (AUTO) 9.6 K/UL (1.8-8.9); NEUTROPHILS % (AUTO) 67.1 % (38.5-71.5); PLATELET COUNT (AUTO) 371 K/UL (150-450); RED BLOOD CELL COUNT(AUTO) 4.72 MIL/UL (4.2-5.4); WHITE BLOOD COUNT (AUTO) 14.3 K/UL (4.0-11.2)
[2017-04-04 22:54] LABS: BAND % (MANUAL) 2 % (0-10); EOSINOPHILS % (MANUAL) 2 % (0-8); LYMPHOCYTES % (MANUAL) 20 % (20-40); MONOCYTES % (MANUAL) 7 % (2-10); NEUTROPHILS % (MANUAL) 69 % (42-75)
[2017-04-04] MEDS ORDERED: AZITHROMYCIN 250 MG TABLET PO ONE (23:00)
--- NOTE | 2017-04-04 23:08 | NUR ---
Patient discharged to home in stable conditon. Written and verbal after care instructions given. Patient verbalizes understanding of instructions. PATIENT LEFT ACCOMPANIED BY .
[2017-04-04 23:09] VITALS: BP 151/87
[2017-04-04] MEDS ORDERED: AZITHROMYCIN 250 MG TABLET ONE (23:19)
== END 2017-04-04 23:09 | disposition home or self-care (01) ==
LOC: ER 22:03
DX: J06.9 Acute upper respiratory infection, unspecified (principal); K21.9 Gastro-esophageal reflux disease without esophagitis
CPT/HCPCS: 36415; 71010; 85025; A4663; Q0144

== ENCOUNTER 2017-06-30 14:54 | Emergency (ER) | payer MEDICARE ==
[~2017-06-30] VITALS: Ht 162.6 cm; Wt 54.4 kg
[2017-06-30] MEDS: IV NORMAL SALINE 1000 ML BAG IV ONE ×2 (15:43→16:28)
[2017-06-30 16:06] LABS: BASOPHILS # (AUTO) 0.1 K/uL (0.0-8.0); BASOPHILS % (AUTO) 1.1 % (0.0-2.0); EOSINOPHILS # (AUTO) 0.2 K/uL (0.0-0.7); EOSINOPHILS % (AUTO) 2.1 % (0.0-7.0); HEMATOCRIT 40.5 % (31.2-41.9); HEMOGLOBIN 13.6 g/dL (10.9-14.3); LYMPHOCYTES # (AUTO) 1.5 K/uL (20.0-40.0); LYMPHOCYTES % (AUTO) 14.9 % (20.5-51.5); MEAN CORPUSCULAR HGB CONC 34 g/dL (32.3-35.6); MEAN CORPUSCULAR VOLUME 89.3 fL (75.5-95.3); MONOCYTES # (AUTO) 1.2 K/uL (2.0-10.0); MONOCYTES % (AUTO) 11.9 % (0.0-11.0); NEUTROPHILS # (AUTO) 7.2 K/uL (1.8-8.9); PLATELET COUNT (AUTO) 300 K/uL (179-408); RED BLOOD CELL COUNT(AUTO) 4.54 MIL/uL (3.63-4.92); WHITE BLOOD COUNT (AUTO) 10.3 K/uL (3.8-11.8)
--- NOTE | 2017-06-30 16:10 | NUR ---
LUCRETIA Brown attempted IV line insertion, warm pack is on.
[2017-06-30 16:18] LABS: CARBON DIOXIDE 20 mmol/L (21-32); CHLORIDE 105 mmol/L (98-107); CREATININE 0.3 mg/dL (0.6-1.3); GLUCOSE 127 mg/dL (74-106); POTASSIUM 3.2 mmol/L (3.5-5.1); UREA NITROGEN, BLOOD 9 mg/dL (7-18)
[2017-06-30 16:24] LABS: ALANINE AMINOTRANSFERASE 29 U/L (14-59); ALKALINE PHOSPHATASE 85 U/L (50-136); ASPARTATE AMINOTRANSFERASE 24 U/L (15-37); BILIRUBIN,DIRECT 0.1 mg/dL (0.0-0.2); BILIRUBIN,TOTAL 0.3 mg/dL (0.2-1.0)
--- NOTE | 2017-06-30 16:29 | NUR ---
cancelled the IV fluid order after 2 attempts for iV line insertion. Only one blood culture set was drawn by lab roof fitter earlier because pt refused the 2nd set of blood culture draw earlier as well. notified.
[2017-06-30] MEDS ORDERED: CEFTRIAXONE 1 G VIAL IM ONE (16:45)
[2017-06-30] MEDS ORDERED: DEXAMETHASONE SOD PHOSPHATE 4 MG INJ IM ONE (16:45)
--- NOTE | 2017-06-30 16:57 | NUR ---
Patient discharged to home in stable conditon. Written and verbal after care instructions given to patient and spouse. Patient and spouse verbalized understanding of instructions (e.g. allergic reactions, worsening of symptoms, fever, shortness of breath or any other concerns).
[2017-06-30] MEDS ORDERED: DEXAMETHASONE SOD PHOSPHATE 4 MG INJ ONE (17:00)
[2017-06-30] MEDS ORDERED: CEFTRIAXONE 1 G VIAL ONE (17:00)
[2017-06-30] MEDS ORDERED: LIDOCAINE HCL 1% 20 ML VIAL ONE (17:01)
== END 2017-06-30 16:59 | disposition home or self-care (01) ==
LOC: ER 14:54
DX: J40 Bronchitis, not specified as acute or chronic (principal); G71.0 Muscular dystrophy; K21.9 Gastro-esophageal reflux disease without esophagitis; Z99.3 Dependence on wheelchair
CPT/HCPCS: 36415; 70030-TC; 71010; 83605; 85025; 85730; 87040; A4663; J0696; J1100; J3490; J7030

== ENCOUNTER 2017-08-20 13:19 | Emergency (ER) | payer MEDICARE ==
[~2017-08-20] VITALS: Ht 162.6 cm; Wt 54.4 kg
[2017-08-20] MEDS ORDERED: IV NORMAL SALINE 1000 ML BAG IV ONE (13:45)
[2017-08-20] MEDS ORDERED: KETOROLAC TROMETHAMINE 15 MG INJ IV ONE (13:45)
--- NOTE | 2017-08-20 13:48 | NUR ---
1st contact with patient-AOX4, respiration:easy, c/o diffused abdominal pains, denies nausea ,no vomiting or diarrhea. Patient requesting IV toradol at this time.
[2017-08-20] MEDS ORDERED: KETOROLAC TROMETHAMINE 15 MG INJ ONE ×2 (14:08→16:03)
--- NOTE | 2017-08-20 14:58 | NUR ---
Unsuccessful blood draw by lab system manager notified
[2017-08-20 15:24] LABS: *BILIRUBIN,URIN NEGATIVE (NEGATIVE); *BLOOD, URINE Trace-intact (NEGATIVE); *KETONES,URINE 4+ (NEGATIVE); *PROTEIN,URINE NEGATIVE (NEGATIVE); *UROBILINOGEN,URINE 0.2 E.U./dl (NORMAL); LEUKOCYTE ESTERASE ,URINE NEGATIVE (NEGATIVE); NITRITE, URINE POSITIVE (NEGATIVE); UGLUCOSE NEGATIVE (NEGATIVE)
[2017-08-20 15:31] LABS: *CLARITY,URINE HAZY (CLEAR); *COLOR,URINE DARK YELLOW (YELLOW)
[2017-08-20 15:32] LABS: BACTERIA,URINE FEW /HPF (NONE SEEN); MUCUS,URINE MODERATE /LPF (0-FEW); SQUAMOUS EPITHELIAL CELL,UR MANY /HPF (NONE SEEN); WBC,URINE 0-3 /HPF (0-3)
[2017-08-20] MEDS ORDERED: LEVOFLOXACIN 750 MG/D5W 150 ML PIGGYBACK IV ONE (15:45)
[2017-08-20] MEDS ORDERED: KETOROLAC TROMETHAMINE 15 MG INJ IVP ONE (15:45)
[2017-08-20] MEDS ORDERED: LEVOFLOXACIN 750MG/D5W 150 ML IV ONE (16:03)
--- NOTE | 2017-08-20 16:37 | NUR ---
Patient is resting comfortably on her own wheelchair while using her personal electronic device, NAD, Calm, pleasant, respiration:easy.
--- NOTE | 2017-08-20 16:47 | NUR ---
Patient discharged to home in stable conditon. Written and verbal after care instructions given to patient and spouse. Patient and spouse verbalized understanding of instructions.
--- NOTE | 2017-08-20 17:14 | NUR ---
IV removed@1713. Catheter intact and site benign. Pressure and 4x4 gauze applied to site. No bleeding noted.
== END 2017-08-20 17:15 | disposition home or self-care (01) ==
LOC: ER 13:19
DX: N39.0 Urinary tract infection, site not specified (principal); G71.0 Muscular dystrophy; K21.9 Gastro-esophageal reflux disease without esophagitis
CPT/HCPCS: 81001; 96365; 96375; 96376; 99284; A4663; J1885 ×2; J1956

== ENCOUNTER 2017-09-09 21:05 | Emergency (ER) | payer MEDICARE ==
[~2017-09-09] VITALS: Ht 152.4 cm; Wt 63.5 kg
[2017-09-09] MEDS ORDERED: ASPIRIN 81 MG TAB.CHEW PO ONE (21:30)
[2017-09-09] MEDS ORDERED: IV NORMAL SALINE 1000 ML BAG IV ONE (21:30)
[2017-09-09] MEDS ORDERED: ASPIRIN 81 MG TAB.CHEW ONE (22:04)
[2017-09-09 22:13] LABS: BASOPHILS # (AUTO) 0.1 K/uL (0.0-8.0); BASOPHILS % (AUTO) 1.1 % (0.0-2.0); EOSINOPHILS # (AUTO) 0.2 K/uL (0.0-0.7); EOSINOPHILS % (AUTO) 1.4 % (0.0-7.0); HEMATOCRIT 43.7 % (31.2-41.9); HEMOGLOBIN 14.3 g/dL (10.9-14.3); LYMPHOCYTES # (AUTO) 2.1 K/uL (20.0-40.0); LYMPHOCYTES % (AUTO) 16.4 % (20.5-51.5); MEAN CORPUSCULAR HEMOGLOBIN 29.9 uug (24.7-32.8); MEAN CORPUSCULAR HGB CONC 33 g/dL (32.3-35.6); MEAN CORPUSCULAR VOLUME 91.2 fL (75.5-95.3); MONOCYTES % (AUTO) 7.7 % (0.0-11.0); NEUTROPHILS # (AUTO) 9.3 K/uL (1.8-8.9); NEUTROPHILS % (AUTO) 73.4 % (38.5-71.5); PLATELET COUNT (AUTO) 359 K/uL (179-408); RED BLOOD CELL COUNT(AUTO) 4.79 MIL/uL (3.63-4.92); WHITE BLOOD COUNT (AUTO) 12.7 K/uL (3.8-11.8)
[2017-09-09 22:15] LABS: CARBON DIOXIDE 21 mmol/L (21-32); CHLORIDE 105 mmol/L (98-107); CREATININE 0.4 mg/dL (0.6-1.3); GLUCOSE 126 mg/dL (74-106); POTASSIUM 3.8 mmol/L (3.5-5.1); UREA NITROGEN, BLOOD 14 mg/dL (7-18)
[2017-09-09 22:27] LABS: ALANINE AMINOTRANSFERASE 26 U/L (14-59); ALKALINE PHOSPHATASE 84 U/L (50-136); ASPARTATE AMINOTRANSFERASE 19 U/L (15-37); BILIRUBIN,DIRECT 0.1 mg/dL (0.0-0.2); BILIRUBIN,TOTAL 0.2 mg/dL (0.2-1.0); TOTAL PROTEIN, SERUM 7.6 g/dL (6.4-8.2)
[2017-09-09] MEDS ORDERED: CLONIDINE HCL 0.1 MG TABLET ONE (23:09)
[2017-09-09] MEDS ORDERED: CLONIDINE HCL 0.1 MG TABLET PO ONE (23:15)
[2017-09-09 23:53] LABS: *BILIRUBIN,URIN NEGATIVE (NEGATIVE); *BLOOD, URINE Trace-intact (NEGATIVE); *CLARITY,URINE CLEAR (CLEAR); *COLOR,URINE STRAW (YELLOW); *KETONES,URINE 1+ (NEGATIVE); *PROTEIN,URINE NEGATIVE (NEGATIVE); *UROBILINOGEN,URINE 0.2 E.U./dl (NORMAL); LEUKOCYTE ESTERASE ,URINE TRACE (NEGATIVE); NITRITE, URINE NEGATIVE (NEGATIVE); UGLUCOSE NEGATIVE (NEGATIVE)
[2017-09-10 00:11] LABS: BACTERIA,URINE FEW /HPF (NONE SEEN); RBC,URINE 0-3 /HPF (0-3); SQUAMOUS EPITHELIAL CELL,UR MANY /HPF (NONE SEEN)
[2017-09-10] MEDS ORDERED: METOPROLOL TARTRATE 5 MG/5 ML VIAL IVP ONE ×2 (00:53→01:00)
[2017-09-10 01:53] VITALS: BP 123/97
[2017-12-04] MEDS ORDERED: LEVA0.6320 NEB (12:25)
[2017-12-04] MEDS ORDERED: CHOL10002 PO (12:25)
[2017-12-04] MEDS ORDERED: BUDE0.5A NEB (12:25)
[2017-12-04] MEDS ORDERED: ACET200V5 INH (12:25)
[2017-12-04] MEDS ORDERED: LEVAQUIN 250 MG PO (12:25)
[2017-12-04] MEDS ORDERED: NYST5ORA PO (12:54)
== END 2017-09-10 01:54 | disposition home or self-care (01) ==
LOC: ER 21:06
DX: R00.2 Palpitations (principal); R53.1 Weakness; F41.9 Anxiety disorder, unspecified; R00.0 Tachycardia, unspecified; G71.0 Muscular dystrophy; I10 Essential (primary) hypertension; K21.9 Gastro-esophageal reflux disease without esophagitis; Z79.51 Long term (current) use of inhaled steroids; Z79.2 Long term (current) use of antibiotics; Z79.899 Other long term (current) drug therapy
CPT/HCPCS: 36415; 70030-TC; 71045; 84443; 85025; 85730; 93005; A4663; J3490; J7030

== ENCOUNTER 2017-10-31 20:36 | Emergency (ER) | payer MEDICARE ==
[~2017-10-31] VITALS: Ht 152.4 cm; Wt 59.0 kg
--- NOTE | 2017-10-31 20:50 | NUR ---
PATIENT IN WHEEL CHAIR AT THIS TIME, IN BEDSIDE. HERE FOR ABD PAIN. PATIENT HAS C/O LLQ ABD PAIN SINCE 1729, PATIENT TOOK TORADOL 10MG PO @ 183. PATIENT STATES THE PAIN IS NOW 0/10. PATIENT HERE FOR FURTHER EVALUATION OF CAUSATIVE FACTORS OF PAIN. PATIENT IS PARAPLEGIC , AAOX4. ABLE TO MAKE NEEDS KNOWN. ABLE TO SPEAK IN COMPLETE SENTENCES. ABLE TO FOLLOW DIRECTIONS. NO COMPLAINT OF SOB, RESPIRATORY DISTRESS NOTED. RESPIRATIONS EVEN AND UNLABORED. NO CARDIOVASCULAR DISTRESS NOTED. PATIENT PLACED ON HUMAN RESOURCES VICE PRESIDENT AT THIS TIME. NOTED WITH SINUS TACHYCARDIA ON MONITOR , HR @110. VSS. PATIENT REQUESTS TO REMAIN IN WHEELCHAIR AT THIS TIME. AT BEDSIDE.
--- NOTE | 2017-10-31 21:18 | NUR ---
DAMIAN ZALDIVAR AT BEDSIDE FOR PATIENT EVALUATION.
--- NOTE | 2017-10-31 21:42 | NUR ---
PHLEBOTOMY AT BEDSIDE. PATIENT WOULD LIKE TO DEFER PERIPHERAL IV PLACEMENT UNTIL ABSOLUTELY NEEDED.
[2017-10-31 22:01] LABS: BASOPHILS # (AUTO) 0.1 K/uL (0.0-8.0); BASOPHILS % (AUTO) 0.4 % (0.0-2.0); EOSINOPHILS # (AUTO) 0.1 K/uL (0.0-0.7); EOSINOPHILS % (AUTO) 0.5 % (0.0-7.0); HEMATOCRIT 38.6 % (31.2-41.9); LYMPHOCYTES # (AUTO) 1.5 K/uL (20.0-40.0); LYMPHOCYTES % (AUTO) 8.7 % (20.5-51.5); MEAN CORPUSCULAR HEMOGLOBIN 29.5 uug (24.7-32.8); MEAN CORPUSCULAR HGB CONC 34 g/dL (32.3-35.6); MEAN CORPUSCULAR VOLUME 87.9 fL (75.5-95.3); MONOCYTES # (AUTO) 1.8 K/uL (2.0-10.0); MONOCYTES % (AUTO) 10.2 % (0.0-11.0); NEUTROPHILS # (AUTO) 14.2 K/uL (1.8-8.9); NEUTROPHILS % (AUTO) 80.2 % (38.5-71.5); PLATELET COUNT (AUTO) 368 K/uL (179-408); RED BLOOD CELL COUNT(AUTO) 4.39 MIL/uL (3.63-4.92); WHITE BLOOD COUNT (AUTO) 17.7 K/uL (3.8-11.8)
--- NOTE | 2017-10-31 22:10 | NUR ---
CORPORATE REPRESENTATIVE AT BEDSIDE. PATIENT TAKEN TO CT AT THIS TIME. NO ACUTE DISTRESS NOTED. PATIENT DOES NOT NEED TO BE ACCOMPANIED BY RN PER ER MD INSTRUCTION.
[2017-10-31 22:14] LABS: ALANINE AMINOTRANSFERASE 30 U/L (14-59); ALKALINE PHOSPHATASE 98 U/L (50-136); ASPARTATE AMINOTRANSFERASE 17 U/L (15-37); BILIRUBIN,DIRECT 0.1 mg/dL (0.0-0.2); BILIRUBIN,TOTAL 0.3 mg/dL (0.2-1.0); CARBON DIOXIDE 27 mmol/L (21-32); CHLORIDE 106 mmol/L (98-107); CREATININE 0.2 mg/dL (0.6-1.3); GLUCOSE 112 mg/dL (74-106); LIPASE 113 U/L (73-393); POTASSIUM 3.6 mmol/L (3.5-5.1); TOTAL PROTEIN, SERUM 6.8 g/dL (6.4-8.2); UREA NITROGEN, BLOOD 9 mg/dL (7-18)
--- NOTE | 2017-10-31 22:27 | NUR ---
PT IN BED. NO ACUTE DISTRESS NOTED. NO C/O PAIN AT THIS TIME. REMAINS AT BEDSIDE. CALL LIGHT WITHIN REACH. PT NEEDS ATTENDED & MET. PLACED ON VARNISH BLENDER. SAO2 MONITORING ONGOING.
--- NOTE | 2017-10-31 22:27 | NUR ---
PT BACK FROM CT SCAN
--- NOTE | 2017-10-31 23:03 | NUR ---
DAMIAN ZALDIVAR at [facility] for patient update.
[2017-10-31] MEDS ORDERED: LEVOFLOXACIN 750 MG/D5W 150 ML PIGGYBACK IV ONE (23:15)
[2017-10-31] MEDS ORDERED: IV NORMAL SALINE 1000 ML BAG IV ONE (23:15)
[2017-10-31] MEDS ORDERED: METRONIDAZOLE 500 MG/NS 100 ML PIGGYBACK IV ONE (23:15)
[2017-10-31 23:26] LABS: BAND % (MANUAL) 1 % (0-10); LYMPHOCYTES % (MANUAL) 7 % (20-40); MONOCYTES % (MANUAL) 4 % (2-10); MYELOCYTES % 3 % (0-0); NEUTROPHILS % (MANUAL) 80 % (42-75); PROMYELOCYTES % 4 %
[2017-10-31] MEDS ORDERED: METRONIDAZOLE 500 MG/NS 100ML 100 ML IV ONE (23:26)
--- NOTE | 2017-10-31 23:37 | NUR ---
IV ANTIBIOTIC INFUSING. WELL TOLERATED BY PT.
--- NOTE | 2017-11-01 00:12 | NUR ---
Patient in bed, no acute distress noted. VSS.
[2017-11-01] MEDS ORDERED: LEVOFLOXACIN 750MG/D5W 150 ML IV ONE (00:34)
--- NOTE | 2017-11-01 00:41 | NUR ---
Patricia bailon in [facility] - 11/01/17 at 0041 by HARSH PT BACK FROM CT SCAN. NO ACUTE DISTRESS NOTED.
--- NOTE | 2017-11-01 00:41 | NUR ---
IV LEVAQUIN ONGOING. WELL TOLERATED BY PATIENT. NO ACUTE DISTRESS NOTED.
--- NOTE | 2017-11-01 01:18 | NUR ---
IV ANTIBIOTICS INFUSING, PATIENT STATES SHE WOULD LIKE TO BE D/C HOME AFTER COMPLETION OF ANTIBIOTICS. ER MD IS AWARE.
[2017-11-01] MEDS ORDERED: KETOROLAC TROMETHAMINE 30 MG INJ IVP ONE (02:00)
[2017-11-01] MEDS ORDERED: KETOROLAC TROMETHAMINE 30 MG INJ ONE (02:02)
--- NOTE | 2017-11-01 02:21 | NUR ---
Patient discharged to home in stable conditon. Written and verbal after care instructions given. Patient verbalizes understanding of instructions. Patient taken home in wheelchair by . All belongings with patient. peripheral IV removed prior to discharge.
[2017-11-01 02:22] VITALS: BP 131/80
[2017-12-04] MEDS ORDERED: CHOL10002 PO (12:25)
[2017-12-04] MEDS ORDERED: BUDE0.5A NEB (12:25)
[2017-12-04] MEDS ORDERED: ACET200V5 INH (12:25)
[2017-12-04] MEDS ORDERED: LEVAQUIN 250 MG PO (12:25)
[2017-12-04] MEDS ORDERED: LEVA0.6320 NEB (12:25)
[2017-12-04] MEDS ORDERED: NYST5ORA PO (12:54)
== END 2017-11-01 02:22 | disposition home or self-care (01) ==
LOC: ER 20:43
DX: K57.92 Diverticulitis of intestine, part unspecified, without perforation or abscess without bleeding (principal); K21.9 Gastro-esophageal reflux disease without esophagitis; Z88.8 Allergy status to other drugs, medicaments and biological substances; Z79.2 Long term (current) use of antibiotics; Z79.899 Other long term (current) drug therapy; Z79.51 Long term (current) use of inhaled steroids
CPT/HCPCS: 36415; 74176; 80048; 80076; 83605; 83690; 84484; 85025; 85730; 87040 ×2; 96365; 96366; 96367; 96375; 99285; A4663; J1885; J1956; J3490; J7030; 70030-TC

== ENCOUNTER 2017-11-28 20:47 | Inpatient (IN) | payer MEDICARE ==
[~2017-11-28] VITALS: Ht 152.4 cm; Wt 59.0 kg
--- NOTE | 2017-11-28 21:00 | NUR ---
Patient comes into the ER from home, she arrived via power wheelchair accompanied by her . Patient states she has had productive cough, green sputum, sore throat x 1 day. Patient has some audible wheezing and bilat. enriquechi upon arrival. Respirations even and unlabored. No cardiovascular distress noted. Denies chest pain. patient is sinus tachycardia on plate corrector. No GI/ distress noted. Denies nausea/vomiting at this time.
[2017-11-28] MEDS ORDERED: ALBUTEROL SULFATE 2.5 MG/3 ML NEBU NEB ONE (21:15)
[2017-11-28] MEDS ORDERED: KETOROLAC TROMETHAMINE 15 MG INJ IVP ONE (21:15)
[2017-11-28] MEDS ORDERED: IPRATROPIUM BROMIDE 0.5 MG/2.5 ML NEBU NEB ONE (21:15)
[2017-11-28] MEDS ORDERED: DEXAMETHASONE SOD PHOSPHATE 4 MG INJ IV ONE (21:15)
[2017-11-28] MEDS ORDERED: CLINDAMYCIN PHOSPHATE IV 600 MG in IV DEXTROSE 5% 100 ML IV ONE (21:15)
[2017-11-28] MEDS ORDERED: IV NORMAL SALINE 1000 ML BAG IV ONE (21:15)
[2017-11-28] MEDS ORDERED: LEVOFLOXACIN 750MG/D5W 150 ML IV ONE ×2 (21:15→21:45)
[2017-11-28] MEDS ORDERED: ALBUTEROL SULFATE 2.5 MG/3 ML NEBU ONE (21:22)
[2017-11-28] MEDS ORDERED: IPRATROPIUM BROMIDE 0.5 MG/2.5 ML NEBU ONE (21:22)
[2017-11-28 21:45] LABS: BASOPHILS # (AUTO) 0.1 K/uL (0.0-8.0); BASOPHILS % (AUTO) 0.5 % (0.0-2.0); EOSINOPHILS % (AUTO) 0.2 % (0.0-7.0); HEMATOCRIT 44.1 % (31.2-41.9); HEMOGLOBIN 14.6 g/dL (10.9-14.3); LYMPHOCYTES # (AUTO) 0.4 K/uL (20.0-40.0); LYMPHOCYTES % (AUTO) 1.8 % (20.5-51.5); MEAN CORPUSCULAR HEMOGLOBIN 29.3 uug (24.7-32.8); MEAN CORPUSCULAR HGB CONC 33 g/dL (32.3-35.6); MEAN CORPUSCULAR VOLUME 88.4 fL (75.5-95.3); NEUTROPHILS # (AUTO) 22.3 K/uL (1.8-8.9); NEUTROPHILS % (AUTO) 93.5 % (38.5-71.5); PLATELET COUNT (AUTO) 300 K/uL (179-408); RED BLOOD CELL COUNT(AUTO) 4.99 MIL/uL (3.63-4.92); WHITE BLOOD COUNT (AUTO) 23.8 K/uL (3.8-11.8)
[2017-11-28] MEDS ORDERED: DEXAMETHASONE SOD PHOSPHATE 10 MG INJ ONE (21:45)
[2017-11-28 21:54] LABS: CARBON DIOXIDE 23 mmol/L (21-32); CHLORIDE 101 mmol/L (98-107); CREATININE 0.2 mg/dL (0.6-1.3); GLUCOSE 114 mg/dL (74-106); POTASSIUM 3.5 mmol/L (3.5-5.1); UREA NITROGEN, BLOOD 8 mg/dL (7-18)
[2017-11-28] MEDS ORDERED: KETOROLAC TROMETHAMINE 15 MG INJ ONE (21:56)
--- NOTE | 2017-11-28 21:58 | NUR ---
Patient remains in wheel chair at this time. patient requests to stay in wheel chair until it is absolutely necessary to be placed into the bed. IVF and IV Levaquin ongoing at this time. No acute distress noted. breathing tx ongoing. remains at bedside.
--- NOTE | 2017-11-28 22:00 | NUR ---
ADMITTED PATIENT IN TELE UNIT UNDER THE CARE DR. HAMILTON, BELONGING LIST DONE. Addendum: 11/29/17 at 0114 by GANESH RITTER RN ADMITTED PATIENT IN TELE UNIT UNDER THE CARE OF DR. HAMILTON BELONGING LIST DONE, ERROR IN CHARTING.
--- NOTE | 2017-11-28 22:03 | NUR ---
Xray at bedside
[2017-11-28 22:05] LABS: ALANINE AMINOTRANSFERASE 36 U/L (14-59); ALKALINE PHOSPHATASE 117 U/L (50-136); ASPARTATE AMINOTRANSFERASE 28 U/L (15-37); BILIRUBIN,DIRECT 0.2 mg/dL (0.0-0.2); BILIRUBIN,TOTAL 0.6 mg/dL (0.2-1.0); TOTAL PROTEIN, SERUM 8.6 g/dL (6.4-8.2)
--- NOTE | 2017-11-28 22:26 | NUR ---
Panel call placed to [employer].
[2017-11-28] MEDS ORDERED: FLUT12AE5 IH (22:28)
[2017-11-28] MEDS ORDERED: ESTR1PAT78 TD (22:40)
[2017-11-28] MEDS ORDERED: ASPI-605 PO (22:54)
--- NOTE | 2017-11-28 22:55 | NUR ---
Report given to Osmel BOYKIN on telemetry. Dx: PNA. Admit to Telemetry. Admitted under Dr. Morataya
--- NOTE | 2017-11-28 23:01 | NUR ---
Clindamycin infusion endorsed to medication manager. Order form completed by Dr Juan J Aguirre
--- NOTE | 2017-11-28 23:05 | NUR ---
ADMITTED PATIENT IN TELE UNIT UNDER THE CARE DR. HAMILTON, BELONGING LIST DONE.
[2017-11-28] MEDS ORDERED: LEVALBUTEROL HCL NEB 0.63 MG/3 ML NEBU NEB PRN (23:15)
[2017-11-28] MEDS ORDERED: MAGNESIUM HYDROXIDE 30 ML LIQUID UDC PO PRN (23:15)
[2017-11-28] MEDS ORDERED: MORPHINE SULFATE 4 MG/1 ML DISP.SYRIN IV PRN (23:15)
[2017-11-28 23:30] VITALS: BP 144/82
[2017-11-29] MEDS ORDERED: CLINDAMYCIN PHOSPHATE 600 MG/4 ML VIAL ONE (00:18)
[2017-11-29] MEDS ORDERED: CLINDAMYCIN PHOSPHATE IV 600 MG in IV DEXTROSE 5% 100 ML IV ONE (00:45)
[2017-11-29 03:30] VITALS: BP 122/65
[2017-11-29] MEDS ORDERED: Z GUARD REMEDY PASTE 57 GM TUBE TOP PRN (04:00)
[2017-11-29] MEDS: PANTOPRAZOLE SODIUM 40 MG TABLET.DR PO SCH ×2 (06:40→22:47)
[2017-11-29 06:44] LABS: BASOPHILS % (AUTO) 0.1 % (0.0-2.0); HEMATOCRIT 39.8 % (31.2-41.9); HEMOGLOBIN 13.3 g/dL (10.9-14.3); LYMPHOCYTES # (AUTO) 0.2 K/uL (20.0-40.0); LYMPHOCYTES % (AUTO) 1.1 % (20.5-51.5); MEAN CORPUSCULAR HEMOGLOBIN 29.6 uug (24.7-32.8); MEAN CORPUSCULAR HGB CONC 34 g/dL (32.3-35.6); MEAN CORPUSCULAR VOLUME 88.4 fL (75.5-95.3); MONOCYTES # (AUTO) 0.2 K/uL (2.0-10.0); MONOCYTES % (AUTO) 1.2 % (0.0-11.0); NEUTROPHILS # (AUTO) 17.2 K/uL (1.8-8.9); NEUTROPHILS % (AUTO) 97.6 % (38.5-71.5); PLATELET COUNT (AUTO) 288 K/uL (179-408); RED BLOOD CELL COUNT(AUTO) 4.51 MIL/uL (3.63-4.92); WHITE BLOOD COUNT (AUTO) 17.7 K/uL (3.8-11.8)
[2017-11-29 06:58] LABS: ALANINE AMINOTRANSFERASE 29 U/L (14-59); ALKALINE PHOSPHATASE 94 U/L (50-136); ASPARTATE AMINOTRANSFERASE 26 U/L (15-37); BILIRUBIN,TOTAL 0.3 mg/dL (0.2-1.0); CARBON DIOXIDE 22 mmol/L (21-32); CHLORIDE 104 mmol/L (98-107); CREATININE 0.2 mg/dL (0.6-1.3); GLUCOSE 129 mg/dL (74-106); MAGNESIUM 1.9 mg/dL (1.8-2.4); PHOSPHOROUS 2.7 mg/dL (2.5-4.9); POTASSIUM 3.5 mmol/L (3.5-5.1); TOTAL PROTEIN, SERUM 7.2 g/dL (6.4-8.2); UREA NITROGEN, BLOOD 5 mg/dL (7-18)
--- NOTE | 2017-11-29 08:00 | NUR ---
AWAKE ALERT COOPERATE WELL NO SOB OR PAIN STILL HAVING DRY COUGHING IV HL ON LAC INTACT ON FALL /ASPIRATION PRECAUTION BED ALARM ON AND CALL LIGHT IN REACH FAMILY AT BEDSIDE
[2017-11-29] MEDS: Z GUARD REMEDY PASTE 57 GM TUBE TOP PRN (08:12)
[2017-11-29] MEDS: ASPIRIN EC 81 MG TABLET.DR PO SCH (08:12)
[2017-11-29] MEDS: FLUTICASONE/VILANTEROL 1 EACH BLST.W.DEV INH SCH ×2 (08:46→09:00)
[2017-11-29] MEDS ORDERED: ALBUTEROL SULFATE 1.25 MG/3 ML NEBU NEB PRN (09:30)
[2017-11-29] MEDS ORDERED: GUAIFENESIN LA 600 MG TABLET.SA PO SCH (09:30)
[2017-11-29] MEDS ORDERED: ACETYLCYSTEINE 200 MG/1 ML 10 ML VIAL NEB SCH ×3 (10:15→15:30)
[2017-11-29 11:19] VITALS: BP 151/82
[2017-11-29] MEDS: CEFTRIAXONE 1 G in IV DEXTROSE 5% 50 ML IV SCH (13:52)
[2017-11-29] MEDS: LEVALBUTEROL HCL NEB 0.63 MG/3 ML NEBU NEB PRN ×3 (14:08→22:46)
[2017-11-29] MEDS: AZITHROMYCIN IV 500 MG in IV DEXTROSE 5% 250 ML IV SCH (14:51)
[2017-11-29 15:05] VITALS: BP 126/78
[2017-11-29] MEDS: ACETYLCYSTEINE 20% 800 MG/4 ML VIAL INH SCH ×2 (16:44→22:46)
--- NOTE | 2017-11-29 17:30 | NUR ---
STABLE HEMODYNAMIC STATUS PAIN UNDER CONTROL SAFETY MEASURE PROVIDED CALL LIGHT IN REACH FAMILY AT BEDSIDE
--- NOTE | 2017-11-29 19:00 | NUR ---
Received patient awake and alert during initial rounds. at bedside. Denies any pain/discomforts but complaint of feeling cold, Warm blanket provided. Continue care as planned.
[2017-11-29 20:00] VITALS: BP 144/79
[2017-11-29] MEDS ORDERED: LEVOFLOXACIN 500 MG/D5W 500 MG in PREMIXED 1 EACH IV SCH (20:00)
[2017-11-29] MEDS: ADVAIR 100/50 INH SCH (20:43)
[2017-11-29] MEDS: DOCUSATE SODIUM 100 MG CAPSULE PO SCH (20:44)
[2017-11-29] MEDS: ACETAMINOPHEN 325 MG TABLET PO PRN (20:53)
[2017-11-29] MEDS: LORATADINE 10 MG TABLET PO SCH (22:00)
--- NOTE | 2017-11-29 22:10 | NUR ---
Patient/ requested not to be bothered until 0800 for her to be able to get enough sleep. Posted note by the door. Charge Nurse aware.
--- NOTE | 2017-11-29 22:52 | NUR ---
Patient requesting that her Xopenex frequency be changed to every 4 hours and not every 4 hours PRN. Will notify
[2017-11-30] VITALS: BP 119/56
[2017-11-30] MEDS ORDERED: CLONIDINE HCL 0.1 MG TABLET PO PRN
--- NOTE | 2017-11-30 05:13 | NUR ---
Shift end report: Slept good. remain at bedside. Infrequent coughing noted. All needs attended and met. Continue current plan of care.
--- NOTE | 2017-11-30 07:38 | NUR ---
Awake, alert, oriented x 4, verbalized having a good sleep and with appetite to eat this morning. Lab being drawn, RT treatment to be given. Spouse at bedside, supportive and attentive to care
[2017-11-30] MEDS: ACETYLCYSTEINE 20% 800 MG/4 ML VIAL INH SCH ×3 (07:39→22:35)
[2017-11-30] MEDS: LEVALBUTEROL HCL NEB 0.63 MG/3 ML NEBU NEB PRN ×4 (07:39→19:32)
[2017-11-30 08:21] LABS: BASOPHILS # (AUTO) 0.1 K/uL (0.0-8.0); BASOPHILS % (AUTO) 0.3 % (0.0-2.0); HEMATOCRIT 40.2 % (31.2-41.9); HEMOGLOBIN 13.2 g/dL (10.9-14.3); LYMPHOCYTES # (AUTO) 1.3 K/uL (20.0-40.0); LYMPHOCYTES % (AUTO) 6.1 % (20.5-51.5); MEAN CORPUSCULAR HEMOGLOBIN 29.3 uug (24.7-32.8); MEAN CORPUSCULAR HGB CONC 33 g/dL (32.3-35.6); MEAN CORPUSCULAR VOLUME 89.3 fL (75.5-95.3); MONOCYTES # (AUTO) 1.8 K/uL (2.0-10.0); MONOCYTES % (AUTO) 8.6 % (0.0-11.0); NEUTROPHILS # (AUTO) 18.1 K/uL (1.8-8.9); PLATELET COUNT (AUTO) 255 K/uL (179-408); WHITE BLOOD COUNT (AUTO) 21.3 K/uL (3.8-11.8)
[2017-11-30] MEDS: ASPIRIN EC 81 MG TABLET.DR PO SCH (08:59)
[2017-11-30] MEDS: ACETAMINOPHEN 325 MG TABLET PO PRN ×2 (08:59→17:23)
[2017-11-30 09:00] VITALS: BP 136/95
[2017-11-30] MEDS: ADVAIR 100/50 INH SCH ×2 (09:01→21:00)
[2017-11-30 09:15] LABS: CARBON DIOXIDE 23 mmol/L (21-32); CHLORIDE 105 mmol/L (98-107); CREATININE 0.3 mg/dL (0.6-1.3); GLUCOSE 131 mg/dL (74-106); MAGNESIUM 1.9 mg/dL (1.8-2.4); PHOSPHOROUS 2.6 mg/dL (2.5-4.9); POTASSIUM 3.1 mmol/L (3.5-5.1); UREA NITROGEN, BLOOD 6 mg/dL (7-18)
[2017-11-30] MEDS: LORATADINE 10 MG TABLET PO SCH (10:36)
[2017-11-30] MEDS: KETOROLAC TROMETHAMINE 30 MG INJ IVP PRN (10:37)
--- NOTE | 2017-11-30 10:37 | NUR ---
Complaining of abdominal/muscle pain from coughing. Toradol given as ordered with relief
[2017-11-30 11:03] LABS: BAND % (MANUAL) 10 % (0-10); LYMPHOCYTES % (MANUAL) 4 % (20-40); METAMYELOCYTES % 1 % (0-1); MONOCYTES % (MANUAL) 7 % (2-10); NEUTROPHILS % (MANUAL) 78 % (42-75)
[2017-11-30 11:30] VITALS: BP 140/69
[2017-11-30] MEDS ORDERED: POTASSIUM CHLORIDE 20 MEQ TAB.PRT.SR PO ONE (12:45)
[2017-11-30] MEDS: POTASSIUM CHLORIDE 50 ML IV SCH (13:31)
--- NOTE | 2017-11-30 14:45 | NUR ---
1st bag of KCL given. Patient requested one bag at this time and will have to wait until the HHN and CPT is done.
[2017-11-30 15:38] VITALS: BP 129/67
[2017-11-30] MEDS ORDERED: methylPREDNISolone SOD SUCC 125 MG/2 ML VIAL IV ONE (16:15)
--- NOTE | 2017-11-30 16:30 | NUR ---
Seen by Dr. Morataya, Dr. Menendez, Dr. Guzmán. Specimen for Sputum CS sent to lab taken by RT after treatment.
[2017-11-30] MEDS: CEFTRIAXONE 1 G in IV DEXTROSE 5% 50 ML IV SCH (16:54)
--- NOTE | 2017-11-30 17:02 | NUR ---
Clinical Pharmacy Note: Vancomycin Pharmacy to Dose Subjective: to start vancomycin in this 52 y/o female per "ID recommendation." Patient has history of muscular dystrophy, in for possible PNA Objective: weight 58kg height 152cm BUN 6 Scr 0.3 wbc 21.3 temp 98.6 Assessment/Plan Due to pt's medical history and likely reduced muscle mass/Scr, will dose per level for now. 1gm vanco given today at 1800. Random ordered with am labs tomorrow. Will check and redose as needed. Will follow
--- NOTE | 2017-11-30 17:15 | NUR ---
IV site hurting. PICC line ordered. waiting for RN
[2017-11-30] MEDS ORDERED: VANCOMYCIN IV 1 G in PREMIXED 0 EACH IV ONE (18:00)
--- NOTE | 2017-11-30 18:37 | NUR ---
Still waiting for PICC line placement. Still to continue infusion of Rocephin, Zithromax, Vancomycin, Potassium. Endorsed for further care and follow up.
[2017-11-30] MEDS: BUDESONIDE 0.5 MG/2 ML NEBU NEB SCH (19:22)
[2017-11-30] MEDS: IPRATROPIUM BROMIDE 0.5 MG/2.5 ML NEBU NEB PRN ×2 (19:32→22:35)
[2017-11-30 20:00] VITALS: BP 116/60
--- NOTE | 2017-11-30 20:00 | NUR ---
PT IN ROOM ALERT AWAKE IN NO ACUTE DISTRESS. AWAITING PICC LINE PLACEMENT AND TO CONTINUE ROUTINE IV ATB THERAPY. STATES SHE IS ABLE TO TOLERATE PAIN AT THIS TIME. NO FEVER OR CHILLS PRESENT. V/S ARE WNL. PT TO RECEIVE ROUTINE BREATHING TX. WILL CONTINUE TO MONITOR. AT BEDSIDE ASSISTING WITH ADLS. WILL CONTINUE TO MONITOR.
[2017-11-30] MEDS: DOCUSATE SODIUM 100 MG CAPSULE PO SCH (21:00)
--- NOTE | 2017-11-30 22:30 | NUR ---
NEW PICC LINE INSERTED TO LEFT UPPER ARM. PT TOLERATED WELL. PT TO RESUME ROUTINE IV ATB AT THIS TIME.
[2017-11-30] MEDS: LEVALBUTEROL HCL 1.25 MG/0.5 ML NEB NEB SCH (22:35)
[2017-12-01] VITALS: BP 108/72
[2017-12-01] MEDS ORDERED: PANTOPRAZOLE SODIUM 40 MG TABLET.DR PO ONE (00:15)
--- NOTE | 2017-12-01 00:17 | NUR ---
PER PT AND , SHE ALWAYS GETS ROUTINE PROTONIX AT BEDTIME. PHARMACY ONCALL AWARE. NOTED AND CARRIED OUT.
[2017-12-01] MEDS: AZITHROMYCIN IV 500 MG in IV DEXTROSE 5% 250 ML IV SCH ×2 (00:24→15:22)
[2017-12-01] MEDS: ONDANSETRON 4 MG/2 ML VIAL IV PRN (00:59)
--- NOTE | 2017-12-01 01:00 | NUR ---
PT HAD NO ADVERSE EFFECT TO RECENT ROCEPHIN IV ATB. STATES SHE HAS SOME NAUSEA PRESENT SINCE ADMINISTERING OF CURRENT AZITHROMYCIN IV ATB. PT OFFERED ZOFRAN. DENIES ANY SOB OR CHEST PAIN. PICC LINE PATENT FLUSHING WELL. PUBLIC WORKS SUPERVISOR SHOWING SINUS RHYTHM TO SINUS TACHY WITH BPM 100-110. WILL CONTINUE TO MONITOR.
[2017-12-01] MEDS ORDERED: POTASSIUM CHLORIDE 50 ML ONE (03:13)
[2017-12-01] MEDS: POTASSIUM CHLORIDE 50 ML IV SCH (03:14)
--- NOTE | 2017-12-01 06:00 | NUR ---
PT ASLEEP AT THIS TIME AND REQUEST TO HAVE BLOOD DRAWN AT A LATER TIME ALONG WITH AM MEDICATIONS. RETAIL FURNITURE SALES STATES SINUS RHYTHM WITH 78 BPM. NO ADVERSE REACTION TO RECENT IV ATB. AT BEDSIDE. WILL CONTINUE TO MONITOR. CALL LIGHT WITHIN REACH.
[2017-12-01] MEDS: BUDESONIDE 0.5 MG/2 ML NEBU NEB SCH ×2 (08:08→19:54)
[2017-12-01] MEDS: ACETYLCYSTEINE 20% 800 MG/4 ML VIAL INH SCH ×3 (08:08→22:59)
[2017-12-01] MEDS: LEVALBUTEROL HCL NEB 0.63 MG/3 ML NEBU NEB PRN ×4 (08:13→23:01)
[2017-12-01 08:18] VITALS: BP 145/85
[2017-12-01 08:21] LABS: LYMPHOCYTES # (AUTO) 0.8 K/uL (20.0-40.0); MEAN CORPUSCULAR VOLUME 88.9 fL (75.5-95.3); MONOCYTES # (AUTO) 0.8 K/uL (2.0-10.0); NEUTROPHILS % (AUTO) 88.7 % (38.5-71.5); RED BLOOD CELL COUNT(AUTO) 4.05 MIL/uL (3.63-4.92)
[2017-12-01 08:28] LABS: BASOPHILS % (AUTO) 0.3 % (0.0-2.0); EOSINOPHILS % (AUTO) 0.1 % (0.0-7.0); HEMATOCRIT 36.1 % (31.2-41.9); LYMPHOCYTES % (AUTO) 5.5 % (20.5-51.5); MEAN CORPUSCULAR HEMOGLOBIN 29.7 uug (24.7-32.8); MEAN CORPUSCULAR HGB CONC 33 g/dL (32.3-35.6); MONOCYTES % (AUTO) 5.4 % (0.0-11.0); NEUTROPHILS # (AUTO) 12.9 K/uL (1.8-8.9); PLATELET COUNT (AUTO) 281 K/uL (179-408); WHITE BLOOD COUNT (AUTO) 14.5 K/uL (3.8-11.8)
[2017-12-01] MEDS: ADVAIR 100/50 INH SCH ×2 (09:00→20:38)
[2017-12-01 09:01] LABS: CARBON DIOXIDE 25 mmol/L (21-32); CHLORIDE 107 mmol/L (98-107); CREATININE 0.2 mg/dL (0.6-1.3); GLUCOSE 121 mg/dL (74-106); PHOSPHOROUS 2.6 mg/dL (2.5-4.9); POTASSIUM 3.8 mmol/L (3.5-5.1); UREA NITROGEN, BLOOD 8 mg/dL (7-18); VANCOMYCIN,RANDOM 12.1 ug/mL (18.0-26.0)
[2017-12-01] MEDS: LORATADINE 10 MG TABLET PO SCH (09:10)
[2017-12-01] MEDS: ASPIRIN EC 81 MG TABLET.DR PO SCH (09:10)
[2017-12-01] MEDS: KETOROLAC TROMETHAMINE 30 MG INJ IVP PRN ×2 (09:42→20:38)
[2017-12-01] MEDS ORDERED: VANCOMYCIN IV 1 G in PREMIXED 0 EACH IV ONE (11:00)
[2017-12-01] MEDS: IPRATROPIUM BROMIDE 0.5 MG/2.5 ML NEBU NEB PRN (11:00)
[2017-12-01 11:23] VITALS: BP 131/73
--- NOTE | 2017-12-01 12:00 | NUR ---
At this time both pt. and requesting to have privacy with no interruptions until 1400 they both educated on next course of antibiotics that will start at 1400 and they agree to have treatment at that time
--- NOTE | 2017-12-01 14:00 | NUR ---
both patient and refusing to let door open. Antibiotic treatment started later on ID physician aware and in the unit. ID physician also notified of pt's complains of oral thrash
[2017-12-01] MEDS: CEFTRIAXONE 1 G in IV DEXTROSE 5% 50 ML IV SCH (14:38)
--- NOTE | 2017-12-01 15:22 | NUR ---
Clinical Pharmacy Note: Vancomycin Pharmacy to Dose Subjective: to continue vancomycin in this 52 y/o female per "ID recommendation." Patient has history of muscular dystrophy, in for possible PNA Objective: weight 58kg height 152cm BUN 8 Scr 0.2 wbc 14.5 temp 98.6 random with am labs 12.1 Assessment/Plan Due to pt's medical history and likely reduced muscle mass/Scr, will dose per level for now. 1gm vanco given today at 1100 based on level. Random ordered with am labs tomorrow (ordered at 0800 d/t pt requests not to be woken up before then). Will check and redose as needed. Will follow
[2017-12-01 15:32] VITALS: BP 133/79
[2017-12-01] MEDS: LEVALBUTEROL HCL 1.25 MG/0.5 ML NEB NEB SCH ×2 (15:48→23:06)
[2017-12-01] MEDS: NYSTATIN SUSPENSION 5 ML LIQUID UDC PO SCH ×2 (16:56→20:38)
--- NOTE | 2017-12-01 19:30 | NUR ---
nsg: pt received a/o x 4, lungs sound coarse, on RA O2 saturation is 98%. denies sob. BUE/BLE contracted. piccline on left upper arm in placed. at the bedside. cont with treatment plan.
--- NOTE | 2017-12-01 20:00 | NUR ---
nsg: pt received a/o x 4, no acute distress noted. however, c/o of left foot aching pain, 04/18. left foot dressing intact, elevated on a pillow. picc line on right upperarm in placed. call light within reach. Addendum: 12/02/17 at 0657 by SERGE LUNA RN WRONG PATIENT
[2017-12-01 20:37] VITALS: BP 130/77
[2017-12-01] MEDS: PANTOPRAZOLE SODIUM 40 MG TABLET.DR PO SCH (20:38)
[2017-12-01] MEDS: DOCUSATE SODIUM 100 MG CAPSULE PO SCH (20:38)
--- NOTE | 2017-12-02 | NUR ---
nsg: no change in condition. cont to monitor.
--- NOTE | 2017-12-02 05:53 | NUR ---
nsg: no acute distress noted. denies discomfort. cont with treatment plan.
[2017-12-02] MEDS: KETOROLAC TROMETHAMINE 30 MG INJ IVP PRN ×3 (06:30→21:20)
[2017-12-02] MEDS: ACETYLCYSTEINE 20% 800 MG/4 ML VIAL INH SCH ×3 (07:11→22:30)
[2017-12-02] MEDS: LEVALBUTEROL HCL 1.25 MG/0.5 ML NEB NEB SCH ×3 (07:12→23:30)
[2017-12-02] MEDS: BUDESONIDE 0.5 MG/2 ML NEBU NEB SCH ×2 (07:26→19:34)
--- NOTE | 2017-12-02 08:00 | NUR ---
AWAKE ALERT COOPERATE WELL RESTING QUIET WITH CALL LIGHT IN REACH AND AT BEDSIDE ON FALL /ASPIRATION PRECAUTION
[2017-12-02 08:22] LABS: BASOPHILS # (AUTO) 0.1 K/uL (0.0-8.0); BASOPHILS % (AUTO) 0.4 % (0.0-2.0); EOSINOPHILS # (AUTO) 0.1 K/uL (0.0-0.7); EOSINOPHILS % (AUTO) 0.5 % (0.0-7.0); LYMPHOCYTES # (AUTO) 1.6 K/uL (20.0-40.0); LYMPHOCYTES % (AUTO) 11.3 % (20.5-51.5); MONOCYTES # (AUTO) 1.5 K/uL (2.0-10.0); MONOCYTES % (AUTO) 10.4 % (0.0-11.0); NEUTROPHILS # (AUTO) 10.8 K/uL (1.8-8.9); NEUTROPHILS % (AUTO) 77.4 % (38.5-71.5); PLATELET COUNT (AUTO) 265 K/uL (179-408)
[2017-12-02 08:23] LABS: HEMOGLOBIN 11.7 g/dL (10.9-14.3); RED BLOOD CELL COUNT(AUTO) 3.93 MIL/uL (3.63-4.92); WHITE BLOOD COUNT (AUTO) 14.5 K/uL (3.8-11.8)
[2017-12-02 08:24] LABS: HEMATOCRIT 34.8 % (31.2-41.9); MEAN CORPUSCULAR HEMOGLOBIN 29.7 uug (24.7-32.8); MEAN CORPUSCULAR HGB CONC 34 g/dL (32.3-35.6); MEAN CORPUSCULAR VOLUME 88.5 fL (75.5-95.3)
[2017-12-02 08:36] LABS: ALANINE AMINOTRANSFERASE 20 U/L (14-59); ALKALINE PHOSPHATASE 90 U/L (50-136); ASPARTATE AMINOTRANSFERASE 22 U/L (15-37); BILIRUBIN,TOTAL 0.4 mg/dL (0.2-1.0); CARBON DIOXIDE 27 mmol/L (21-32); CHLORIDE 107 mmol/L (98-107); CHOLESTEROL 111 mg/dL (<200); CREATININE 0.4 mg/dL (0.6-1.3); GLUCOSE 105 mg/dL (74-106); HDL CHOLESTEROL 70 mg/dL (40-60); POTASSIUM 3.7 mmol/L (3.5-5.1); TOTAL PROTEIN, SERUM 6.3 g/dL (6.4-8.2); TRIGLYCERIDES 55 MG/DL (30-150); UREA NITROGEN, BLOOD 13 mg/dL (7-18)
[2017-12-02] MEDS: ASPIRIN EC 81 MG TABLET.DR PO SCH (08:39)
[2017-12-02] MEDS: LORATADINE 10 MG TABLET PO SCH (08:39)
[2017-12-02] MEDS: NYSTATIN SUSPENSION 5 ML LIQUID UDC PO SCH ×4 (08:39→21:09)
[2017-12-02] MEDS: ADVAIR 100/50 INH SCH ×2 (08:56→21:00)
--- NOTE | 2017-12-02 10:00 | NUR ---
DR ORTIZ SEEN PATIENT THIS AM NO ACUTE DISTRESS RT GIVEN TREATMENT QI WELL
[2017-12-02] MEDS ORDERED: VANCOMYCIN IV 1 G in PREMIXED 0 EACH IV ONE (11:00)
[2017-12-02] MEDS: LEVALBUTEROL HCL NEB 0.63 MG/3 ML NEBU NEB PRN ×3 (11:27→22:30)
[2017-12-02 11:29] VITALS: BP 120/69
--- NOTE | 2017-12-02 12:00 | NUR ---
DR HAMILTON SEE PATIENT AND LAB RESULT TODAY NO NEW ORDERR
[2017-12-02] MEDS: CEFTRIAXONE 1 G in IV DEXTROSE 5% 50 ML IV SCH (13:57)
--- NOTE | 2017-12-02 14:10 | NUR ---
Clinical Pharmacy Note: Vancomycin Pharmacy to Dose Subjective: to continue vancomycin in this 52 y/o female per "ID recommendation." Patient has history of muscular dystrophy, in for possible PNA Objective: weight 58kg height 152cm BUN 13 Scr 0.4 wbc 14.5 temp 97.8 random with am labs 12.8 Assessment/Plan Due to pt's medical history and likely reduced muscle mass/Scr, will dose per level for now. 1gm vanco given today at 1100 based on level. Random ordered with am labs tomorrow (ordered at 0800 d/t pt requests not to be woken up before then). Will check and redose as needed. Will follow
[2017-12-02] MEDS: AZITHROMYCIN IV 500 MG in IV DEXTROSE 5% 250 ML IV SCH (14:54)
[2017-12-02] MEDS: ONDANSETRON 4 MG/2 ML VIAL IV PRN (15:34)
[2017-12-02 16:00] VITALS: BP 116/73
--- NOTE | 2017-12-02 17:00 | NUR ---
OOB UP IN CHAIR AND EAT DINNER WELL STATE PAIN MED HELP TO RELIEF PAIN NO N/V AT THIS TIME
--- NOTE | 2017-12-02 17:30 | NUR ---
STABLE HEMODYNAMIC STATUS PAIN UNDER CONTROL NO ACUTE DISTRESS SAFETY MEASURE PROVIDED AND CALL LIGHT IN REACH
--- NOTE | 2017-12-02 19:30 | NUR ---
RECEIVED PATIENT IN BED ALERT ORIENTED, NO SOB NO CHEST PAIN, L UPPER ARM PICC LINE PATENT, NO COMPLAIN OF PAIN AT THIS TIME. AT BEDSIDE. PATIENT HAS MULTIPLE REQUEST, ATTEND ALL NEEDS. CALL LIGHT WITHIN REACH.
[2017-12-02] MEDS: IPRATROPIUM BROMIDE 0.5 MG/2.5 ML NEBU NEB PRN ×2 (19:34→22:30)
[2017-12-02 19:58] VITALS: BP 137/82
[2017-12-02] MEDS: DOCUSATE SODIUM 100 MG CAPSULE PO SCH (21:00)
[2017-12-02] MEDS: PANTOPRAZOLE SODIUM 40 MG TABLET.DR PO SCH (21:09)
[2017-12-02] MEDS: LACTOBACILLUS RHAMNOSUS GG 1 EACH CAPSULE PO SCH (21:09)
[2017-12-02 21:51] VITALS: BP 102/41
--- NOTE | 2017-12-02 23:23 | NUR ---
CELIA HAS ELEVATED HEART RATE OF 125 TO 133, NOTIFY DR. AMOR WITH ORDER TO PUT PATIENT BACK TO TELE MONITORING.
[2017-12-03 04:00] VITALS: BP 117/72
--- NOTE | 2017-12-03 06:09 | NUR ---
PATIENT SLEPT MOST OF THE NIGHT NO SOB NO CHEST PAIN, RYTHM SINUS, SINUS TACHY UP TO 113, THEN WENT SLOWER TO 87, KEPT CLEAN AND DRY, CALL LIGHT WITHIN REACH.
[2017-12-03] MEDS: LEVALBUTEROL HCL 1.25 MG/0.5 ML NEB NEB SCH (06:43)
[2017-12-03] MEDS: IPRATROPIUM BROMIDE 0.5 MG/2.5 ML NEBU NEB PRN (06:43)
[2017-12-03] MEDS: ACETYLCYSTEINE 20% 800 MG/4 ML VIAL INH SCH ×3 (06:43→19:07)
[2017-12-03] MEDS: BUDESONIDE 0.5 MG/2 ML NEBU NEB SCH ×2 (07:07→19:30)
--- NOTE | 2017-12-03 07:45 | NUR ---
RECEIVED PATIENT IN BED AWAKE ALERT AND ORIENTED DENIES PAIN OR DISCOMFORTS OCCASSIONAL COUGH EPISODES ON ROOM AIR WITH NO SHORTNESS OF BREATH.NOT IN DISTRESS AT THIS TIME.
[2017-12-03 08:16] LABS: BASOPHILS # (AUTO) 0.1 K/uL (0.0-8.0); BASOPHILS % (AUTO) 0.5 % (0.0-2.0); EOSINOPHILS # (AUTO) 0.2 K/uL (0.0-0.7); EOSINOPHILS % (AUTO) 1.9 % (0.0-7.0); HEMATOCRIT 35.1 % (31.2-41.9); HEMOGLOBIN 11.7 g/dL (10.9-14.3); LYMPHOCYTES # (AUTO) 2.2 K/uL (20.0-40.0); MEAN CORPUSCULAR HEMOGLOBIN 29.5 uug (24.7-32.8); MEAN CORPUSCULAR HGB CONC 33 g/dL (32.3-35.6); MEAN CORPUSCULAR VOLUME 88.6 fL (75.5-95.3); MONOCYTES # (AUTO) 1.6 K/uL (2.0-10.0); MONOCYTES % (AUTO) 13.5 % (0.0-11.0); NEUTROPHILS % (AUTO) 66.1 % (38.5-71.5); PLATELET COUNT (AUTO) 273 K/uL (179-408); RED BLOOD CELL COUNT(AUTO) 3.96 MIL/uL (3.63-4.92)
[2017-12-03] MEDS: ASPIRIN EC 81 MG TABLET.DR PO SCH (08:27)
[2017-12-03] MEDS: NYSTATIN SUSPENSION 5 ML LIQUID UDC PO SCH ×4 (08:27→21:27)
[2017-12-03] MEDS: LACTOBACILLUS RHAMNOSUS GG 1 EACH CAPSULE PO SCH ×2 (08:27→21:27)
[2017-12-03] MEDS: LORATADINE 10 MG TABLET PO SCH (08:27)
[2017-12-03] MEDS: ADVAIR 100/50 INH SCH ×2 (08:29→20:24)
[2017-12-03 08:30] LABS: CARBON DIOXIDE 27 mmol/L (21-32); CHLORIDE 106 mmol/L (98-107); CREATININE 0.3 mg/dL (0.6-1.3); GLUCOSE 100 mg/dL (74-106); POTASSIUM 3.3 mmol/L (3.5-5.1); UREA NITROGEN, BLOOD 9 mg/dL (7-18)
[2017-12-03] MEDS: IPRATROPIUM BROMIDE 0.5 MG/2.5 ML NEBU NEB SCH ×3 (08:45→19:07)
--- NOTE | 2017-12-03 09:00 | NUR ---
PATIENT SEEN AND EXAMINED BY DR ORTIZ PULMONARY WITH NEW ORDERS AND NOTED.
--- NOTE | 2017-12-03 09:44 | NUR ---
ATROVENT MED. GIVEN BY MICHELINE RANDOLPH AT 0643 ALREADY. PLEASE REFER TO MAR.
--- NOTE | 2017-12-03 11:02 | NUR ---
PATIENT IS SEATED UP ON THE CHAIR ASSISTED BY HER STATED IS COMFORTABLE AT THIS TIME.WILL CONTINUE TO OBSERVE.
[2017-12-03 11:18] VITALS: BP 143/85
--- NOTE | 2017-12-03 11:40 | NUR ---
NOTED THAT PATIENT HAS SOME FUNGAL REDNESS IN HER LEFT AND RIGHT GROIN AND HER BUTTOCKS AREAS ALSO THE ABDOMINAL FOLD CALLED AND NOTIFIED DR HAMILTON WITH NEW ORDERS.PATIENT AND HER REFUSED FOR PHOTOGRAPH DOCUMENTATIONS OF THESE AREAS EVEN AFTER EXPLAINING TO THEM THE HOSPITAL PROTOCOL.PATIENTS RIGHT TO REFUSE PICTURES TAKEN RESPECTED AT THIS TIME.
[2017-12-03] MEDS ORDERED: POTASSIUM CHLORIDE 50 ML IV SCH (12:45)
--- NOTE | 2017-12-03 13:00 | NUR ---
PATIENT SEEN AND EXAMINED BY DR HAMILTON POTASSIUM LEVEL IS 3.3 WITH NEW ORDERS AND NOTED.
[2017-12-03] MEDS: NYSTATIN POWDER 15 GM BOTTLE TOP SCH ×2 (13:37→21:28)
[2017-12-03] MEDS: CEFTRIAXONE 1 G in IV DEXTROSE 5% 50 ML IV SCH (13:39)
[2017-12-03 15:13] VITALS: BP 153/90
[2017-12-03] MEDS: AZITHROMYCIN IV 500 MG in IV DEXTROSE 5% 250 ML IV SCH (15:39)
[2017-12-03] MEDS: ONDANSETRON 4 MG/2 ML VIAL IV PRN (15:43)
--- NOTE | 2017-12-03 17:44 | NUR ---
SO MANY ATTEMPTS MADE TO GIVE IV POTASSIUM ORDERED BUT PATIENT WANTS ME TO WAIT FOR A WHILE STATED NOT REFUSING BUT WANTS TO SIT IN THE CHAIR FIRST EAT DINNER THEN BACK INTO BED BEFORE I CAN START THE IVPB POTASSIUM.
[2017-12-03] MEDS ORDERED: FLUT100D INH (18:18)
[2017-12-03] MEDS: POTASSIUM CHLORIDE 50 ML IV SCH ×2 (18:33→20:22)
--- NOTE | 2017-12-03 18:33 | NUR ---
FIRST BRYANT OF POTASSIUM FINALLY STARTED AT THIS TIME DR HAMILTON IS IN THE ROOM TALKING TO THE PATIENT AND HER . Addendum: 12/03/17 at 1847 by REZA HERNDON RN ERROR IN CHARTING I MEANT FIST DOSE OF POTASSIUM.
--- NOTE | 2017-12-03 19:25 | NUR ---
PT RECEIVED IN BED, AWAKE. AT BEDSIDE. CURRENTLY RECEIVING BREATHING TX. A/OX4. ABLE TO MAKE NEEDS KNOWN. V/S STABLE. IN NO ACUTE DISTRESS. NO C/O PAIN AT THIS TIME. IV POTASSIUM INFUSING. 114 SINUS TACHY ON THE TELE MONITOR, MD AWARE. ON FIRST STEP MATTRESS, WITH HOB ELEVATED. SAFETY MEASURES IMPLEMENTED. BED ALARM SET. CALL REMAINS WITHIN REACH. PT WISHES FOR ROOM DOOR TO BE CLOSED AT ALL TIMES AND PT REFUSES MIDNIGHT V/S. STATES SHE WANTS TO GET SOME REST AND DOES NOT WANT TO BE DISTURBED.
[2017-12-03 20:13] VITALS: BP 137/98
[2017-12-03] MEDS: PANTOPRAZOLE SODIUM 40 MG TABLET.DR PO SCH (21:27)
[2017-12-03] MEDS: DOCUSATE SODIUM 100 MG CAPSULE PO SCH (21:28)
[2017-12-03] MEDS: KETOROLAC TROMETHAMINE 30 MG INJ IVP PRN (21:29)
[2017-12-04] MEDS: IPRATROPIUM BROMIDE 0.5 MG/2.5 ML NEBU NEB SCH ×5 (00:49→12:37)
--- NOTE | 2017-12-04 01:30 | NUR ---
PT REQUEST BREATHING TX AT THIS TIME. RT IN WITH PT. 96 SINUS TACH ON THE TELE MONITOR. STABLE WITH NO ACUTE DISTRESS NOTED.
--- NOTE | 2017-12-04 05:45 | NUR ---
END OF SHIFT NOTES. PT SLEPT INTERMITTENTLY THROUGHOUT SHIFT. PAIN MANAGED. IV POTASSIUM INFUSED. 88 SINUS TO 108 SINUS TACHY ON THE TELE MONITOR. PT REQUESTS FOR LAB DRAW AND ALL V/S CHECKED TO BE DELAYED TILL 0630. REMAINS AT BEDSIDE. COMPLIANT WITH ALL CARE. CONT ON FIRST STEP MATTRESS WITH HOB ELEVATED. SAFETY MAINTAINED. CALL LIGHT WITHIN REACH.
[2017-12-04 06:35] VITALS: BP 128/76
[2017-12-04 07:21] LABS: BASOPHILS # (AUTO) 0.1 K/uL (0.0-8.0); BASOPHILS % (AUTO) 0.9 % (0.0-2.0); EOSINOPHILS # (AUTO) 0.5 K/uL (0.0-0.7); EOSINOPHILS % (AUTO) 4.6 % (0.0-7.0); LYMPHOCYTES # (AUTO) 2.4 K/uL (20.0-40.0); LYMPHOCYTES % (AUTO) 23.5 % (20.5-51.5); MEAN CORPUSCULAR HGB CONC 34 g/dL (32.3-35.6); MEAN CORPUSCULAR VOLUME 88.4 fL (75.5-95.3); MONOCYTES # (AUTO) 1.4 K/uL (2.0-10.0); NEUTROPHILS # (AUTO) 5.7 K/uL (1.8-8.9); PLATELET COUNT (AUTO) 233 K/uL (179-408); RED BLOOD CELL COUNT(AUTO) 3.56 MIL/uL (3.63-4.92)
[2017-12-04 07:25] LABS: ALANINE AMINOTRANSFERASE 20 U/L (14-59); ALKALINE PHOSPHATASE 89 U/L (50-136); ASPARTATE AMINOTRANSFERASE 14 U/L (15-37); BILIRUBIN,TOTAL 0.2 mg/dL (0.2-1.0); CARBON DIOXIDE 29 mmol/L (21-32); CHLORIDE 108 mmol/L (98-107); CREATININE 0.2 mg/dL (0.6-1.3); GLUCOSE 100 mg/dL (74-106); MAGNESIUM 1.7 mg/dL (1.8-2.4); PHOSPHOROUS 3.1 mg/dL (2.5-4.9); TOTAL PROTEIN, SERUM 5.7 g/dL (6.4-8.2); UREA NITROGEN, BLOOD 9 mg/dL (7-18)
[2017-12-04] MEDS: BUDESONIDE 0.5 MG/2 ML NEBU NEB SCH ×2 (07:30→08:39)
[2017-12-04] MEDS: ACETYLCYSTEINE 20% 800 MG/4 ML VIAL INH SCH ×2 (07:30→08:39)
[2017-12-04 07:39] LABS: HEMATOCRIT 31.5 % (31.2-41.9); HEMOGLOBIN 10.7 g/dL (10.9-14.3)
--- NOTE | 2017-12-04 08:10 | NUR ---
AWAKE ALERT AND ORIENTED STATED DID NOT SLEEP WELL LAST NIGHT REMAIN ON ROOM AIR WITH NO SHORTNESS OF BREATH STATED NOT READY FOR HER BREATHING TREATMENT STATED WILL CALL WHEN SHE IS READY. AT THE BEDSIDE ASSISTED WITH REPOSITIONING Q2H WITH SEVERER WEAKNESS AND CONTRACTIONS TOTALLY DEPENDENT FOR ALL ADL MADE COMFORTABLE AND WILL CONTINUE TO OBSERVE.
[2017-12-04] MEDS: LORATADINE 10 MG TABLET PO SCH (08:41)
[2017-12-04] MEDS: ASPIRIN EC 81 MG TABLET.DR PO SCH (08:41)
[2017-12-04] MEDS: NYSTATIN SUSPENSION 5 ML LIQUID UDC PO SCH ×2 (08:41→12:16)
[2017-12-04] MEDS: LACTOBACILLUS RHAMNOSUS GG 1 EACH CAPSULE PO SCH (08:41)
[2017-12-04] MEDS: Z GUARD REMEDY PASTE 57 GM TUBE TOP PRN (08:43)
[2017-12-04] MEDS: NYSTATIN POWDER 15 GM BOTTLE TOP SCH (08:43)
[2017-12-04] MEDS: ADVAIR 100/50 INH SCH (08:44)
[2017-12-04] MEDS ORDERED: CHOLECALCIFEROL 1,000 UNIT TABLET PO SCH (09:00)
--- NOTE | 2017-12-04 10:48 | NUR ---
PATIENT SEEN AND EXAMINED BY DR ORTIZ WITH OKAY TO DISCHARGE TODAY.AWAITING FOR DR HAMILTON TO SEE PATIENT.
--- NOTE | 2017-12-04 11:08 | NUR ---
D/C PLANNING WITH [facility] JOURNEYMAN ARRANGING FOR HER IN HOME TREATMENTS AND MEDICATIONS
[2017-12-04] MEDS: KETOROLAC TROMETHAMINE 30 MG INJ IVP PRN (11:41)
[2017-12-04] MEDS ORDERED: MAGNESIUM SULFATE/D5W 100 ML IV SCH (11:45)
--- NOTE | 2017-12-04 11:45 | NUR ---
MAGNESSIUM LEVEL IS 1.7 DR HAMILTON NOTIFIED WITH NEW ORDERS AND NOTED.
[2017-12-04 12:00] VITALS: BP 144/86
[2017-12-04] MEDS ORDERED: BUDE0.5A NEB (12:25)
[2017-12-04] MEDS ORDERED: ACET200V5 INH (12:25)
[2017-12-04] MEDS ORDERED: LEVA0.6320 NEB (12:25)
[2017-12-04] MEDS ORDERED: CHOL10002 PO (12:25)
[2017-12-04] MEDS ORDERED: LEVAQUIN 250 MG PO (12:25)
--- NOTE | 2017-12-04 12:39 | NUR ---
NEW ORDERS NOTED TO DISCHARGE PATIENT HOME TODAY NOTED AND CARRIED OUT AWAITING FOR PRESCRIPTIONS AND FINALIZING OF ORDERS PATIENTS VERNA IN THE ROOM AWARE AND STATED THAT PATIENT WILL TRANSPORT PATIENT IN HIS PERSONAL VAN.
[2017-12-04] MEDS ORDERED: NYST5ORA PO (12:54)
[2017-12-04] MEDS: CEFTRIAXONE 1 G in IV DEXTROSE 5% 50 ML IV SCH (13:44)
--- NOTE | 2017-12-04 14:55 | NUR ---
IV ROCEPHIN COMPLETED PICC LINE ON HER LEFT UPPER ARM REMOVED AND INTACT AT 45 CM PRESSURE DRESSING AND PRESSURE APPLIED D/C PLANNING PATIENT AWAITING FOR [facility] SPREADER CALLED THE [facility]ARMACIST FOR EDUCATION ON HOME AND DISCHARGED MEDICATIONS.
[2017-12-04 15:30] VITALS: BP 132/90
--- NOTE | 2017-12-04 15:30 | NUR ---
PATIENT IS BEING PREPPED FRO DISCHARGE ADVISED HER THAT PER OUR DISCHARGE PROTOCOL I NEEDED TO TAKE PICTURES OF THE REDNESS ON HER GROINS ABDOMEN AND ANAL/SACRAL AREAS BUT PATIENT REFUSED AND STATED DOES NOT WANT PICTURES TAKEN.PATIENTS RIGHT TO REFUSE RESPECTED.
--- NOTE | 2017-12-04 16:00 | NUR ---
PATIENT DISCHARGED PICKED UP BY HER PRIVATE VAN WITH HER VERNA AND SON IN SATISFACTORY CONDITION WITH DISCHARGE INSTRUCTIONS AND PRESCRIPTIONS AND [facility] WAS HERE AND EDUCATED THE PATIENT ON HER HOME MEDICATIONS.PATIENT DECLINED APPOINTMENTS BEING MADE TO HER PMD STATED WILL CALL HIM HERSELF AND WHEN SHE KNOWS WHEN SHE COULD GO.
--- NOTE | 2017-12-05 08:47 | NUR ---
NOTED THAT PATIENT FORGOT HER SANDALS IN HER ROOM WHEN SHE WAS DISCHARGED SO I CALLED HER AVAILABLE PHONE NUMBER ON THE FACE SHEET AND LEFT HER AND VERNA A MESSAGE TO CALL FOR A TELEGRAPHIC SERVICE DISPATCHER.
== END 2017-12-04 16:00 | disposition home health service (06) | DRG 871 ==
LOC: ER 20:51 → TELE 22:52 → MED 12-01 11:01 → TELE 12-02
PROVIDERS: ADMIT Internal Medicine; ATTEND Internal Medicine
PROC: 02HV33Z Insertion of Infusion Device into Superior Vena Cava, Percutaneous Approach (ICD-10-PCS; principal; 2017-11-30)
DX: A41.9 Sepsis, unspecified organism (principal); J18.9 Pneumonia, unspecified organism; G71.0 Muscular dystrophy; D68.59 Other primary thrombophilia; E44.0 Moderate protein-calorie malnutrition; B37.0 Candidal stomatitis; E83.42 Hypomagnesemia; J45.901 Unspecified asthma with (acute) exacerbation; I47.1 Supraventricular tachycardia; K76.0 Fatty (change of) liver, not elsewhere classified; Z74.09 Other reduced mobility; K80.20 Calculus of gallbladder without cholecystitis without obstruction; K21.9 Gastro-esophageal reflux disease without esophagitis; K44.9 Diaphragmatic hernia without obstruction or gangrene; F41.9 Anxiety disorder, unspecified; Z68.25 Body mass index [BMI] 25.0-25.9, adult; E87.6 Hypokalemia; E86.0 Dehydration; Z77.22 Contact with and (suspected) exposure to environmental tobacco smoke (acute) (chronic); Z79.890 Hormone replacement therapy; Z82.49 Family history of ischemic heart disease and other diseases of the circulatory system; Z83.3 Family history of diabetes mellitus; Z82.5 Family history of asthma and other chronic lower respiratory diseases; Z87.01 Personal history of pneumonia (recurrent); Z99.3 Dependence on wheelchair; Z79.82 Long term (current) use of aspirin; I10 Essential (primary) hypertension; J06.9 Acute upper respiratory infection, unspecified
CPT/HCPCS: 36415; 36569; 70030-TC; 71045; 82306; 83605; 83735; 84100; 84443; 85025; 87040; 87070; 87077; 93005; 94640; 94664; A4663; C1751; J0132; J0456; J0696; J1100; J1885; J1956; J2405; J2930; J3370; J3475; J3480; J3490; J3590; J7030; J7060; J7614